=== PATIENT | male | born 1960 | race Caucasian/White ===

== ENCOUNTER 2017-04-28 19:36 | Inpatient (IN) | payer MEDICARE, MEDICAID ==
[~2017-04-28] VITALS: Ht 170.2 cm; Wt 62.6 kg
--- NOTE | ~2017-04-28 | PROC ---
[address] [address] PROCEDURE REPORT Name: DICK HILTON Room: [address] IN M.R.#: [id number] Admission: 04/28/17 Attend Phys: Tyrell Bruce, Discharge: Date of : 64 Report #: [id number] THIS REPORT FOR: //name// For additional GI report details, please see the Provation report in Perceptive 7 content. By: [id number] Records Staff NANCY /ENOC
[~2017-04-28 19:36] MED LIST: ACETAMINOPHEN325 M1 PO; ACETAMINOPHEN650 MG RECTAL; ALDACTONE; ALDACTONE50 MG PO; ALPRAZOLAM 0.0.25 M1; ALPRAZOLAM 0.50.5 MG PO; ALPRAZOLAM PO; ASPIR 8181 MG PO; AURALGAN EAR DR14 ML; BACTRIM DS TAB1 EACH PO; CLEOCIN HCL150 MG; COLACE 100 MG100 MG PO; CRESTOR PO; CRESTOR10 MG PO; DOXYCYCLINE 10100 M1 PO; FENOFIBRATE134 MG PO; FUROSEMIDE 80 M80 M1 PO; FUROSEMIDE PO; GLUCAGEN1 MG IM; HUMALOG PE100 UNIT/M SC; HUMULIN N100 UNIT/1; HUMULIN N100 UNIT/1 SUBQ; HYDROCODON-ACE1 EAC7; HYDROCODON-ACE1 EACH; K-DUR10 ME1 PO; KEFLEX500 MG PO; KLOR-CON 10 ER10 MEQ PO; LASIX 80 MG TAB80 MG PO; LEVEMIR FL100 UNIT/2 SUBQ; LIPITOR10 MG PO; MELATONIN10 M2 PO; MILK OF MA2400 MG/10 PO; Melatonin 5MG CAPSUL PO; NORITATE60 GM; NOVOLOG100 UNIT/1; NOVOLOG100 UNIT/1 SC; NOVOLOG100 UNIT/1 SUBQ; NYAMYC15 GM TOP; POTASSIUM PO; PRINIVIL40 MG PO; SEROQUEL 25 MG25 M1 PO; SPIRONOLACTONE50 MG PO; TRILIPIX135 MG PO; XARELTO15 MG PO; XARELTO20 MG PO; ZOFRAN ODT4 MG DISSOLVE
[2017-04-28 19:51] VITALS: BP 59/34
[2017-04-28 20:37] LABS: ABSOLUTE BASOPHILS 0.2 thou/uL (0.0-0.2); ABSOLUTE LYMPHOCYTES 1.4 thou/uL (0.8-5.3); ABSOLUTE MONOCYTES 0.7 thou/uL (0.0-1.2); BASOPHILS 1.3 %; EOSINOPHILS 0.2 %; HEMATOCRIT 22.4 % (42.0-52.0); HEMOGLOBIN 7.3 gm/dL (14.0-18.0); LYMPHOCYTES 11.4 %; MCH 30.1 pg (26.0-34.0); MCHC 32.6 g/dL (28.0-37.0); MCV 92.2 fL (80.0-100.0); MONOCYTES 5.6 %; MPV 10.5 fl. (7.2-11.1); NUCLEATED RBCS 0 /100WBC; PLATELET COUNT* 255 thou/uL (150-400); POLYS 81.5 %; RBC 2.44 mil/uL (4.50-6.00); RDW-CV 14.9 % (10.5-14.5); WBC 12.3 thou/uL (4.0-11.0)
[2017-04-28 21:06] LABS: TROPONIN-I LEVEL <0.06 ng/mL (<0.06)
[2017-04-28 21:21] LABS: CREATININE 2.3 mg/dL (0.6-1.3)
[2017-04-28 21:24] LABS: ALBUMIN 3.3 g/dL (3.4-5.0); TOTAL BILIRUBIN 0.3 mg/dL (<0.1-1.0); TOTAL PROTEIN 7.3 g/dL (6.4-8.2)
[2017-04-28 21:32] LABS: POTASSIUM 6.2 mmol/L (3.5-5.1)
[2017-04-28 21:47] LABS: CALCIUM 8.8 mg/dL (8.5-10.1); CREATININE 2.3 mg/dL (0.6-1.3)
[2017-04-28 21:49] LABS: POTASSIUM 6.1 mmol/L (3.5-5.1)
[2017-04-28 22:31] LABS: MAGNESIUM 2.1 mg/dL (1.8-2.4); PHOSPHORUS* 5.9 mg/dL (2.5-4.9)
[2017-04-28 22:45] LABS: APTT 37.8 Seconds (25.0-31.3); INR 1.4; PROTIME 13.6 Seconds (9.20-11.50)
[2017-04-29] VITALS (43 sets, daily range): BP systolic 73–138; BP diastolic 41–73
--- NOTE | 2017-04-29 01:35 | NUR ---
ADMITTED TO ICU FOR SEPSIS. NO ONE PRESENT. PATIENT UNABLE TO ANSWER QUESTIONS. UNABLE TO COMPLETE ADMIT COMPLETELY D/T THIS.
[2017-04-29] MEDS ORDERED: PRINIVIL20 MG PO (02:04)
[2017-04-29 03:12] LABS: MCH 30.1 pg (26.0-34.0); MCHC 34.4 g/dL (28.0-37.0); MCV 87.6 fL (80.0-100.0); MPV 10.4 fl. (7.2-11.1); RDW-CV 14.1 % (10.5-14.5); WBC 11.5 thou/uL (4.0-11.0)
[2017-04-29 03:27] LABS: ALBUMIN 2.5 g/dL (3.4-5.0); CALCIUM 7.8 mg/dL (8.5-10.1); CREATININE 1.6 mg/dL (0.6-1.3); MAGNESIUM 1.9 mg/dL (1.8-2.4); POTASSIUM 4.8 mmol/L (3.5-5.1); TOTAL BILIRUBIN 0.3 mg/dL (<0.1-1.0); TOTAL PROTEIN 6.1 g/dL (6.4-8.2)
[2017-04-29 03:56] LABS: HEMATOCRIT 17.5 % (42.0-52.0)
[2017-04-29 04:17] LABS: BE -10.6 mmol/L (-2 to +3); HCO3 15.3 mmol/L (22.0-26.0); PCO2 VENOUS 34.2 mmHg (41.0-51.0); PO2 VENOUS 40.1 mmHg (35.0-45.0)
[2017-04-29 06:04] LABS: BE -11.9 mmol/L (-2 to +3); HCO3 12.8 mmol/L (22.0-26.0); PCO2 25.1 mmHg (35.0-45.0); pH 7.327 (7.340-7.450)
[2017-04-29 06:05] LABS: PO2 156.5 mmHg (75.0-100.0)
--- NOTE | 2017-04-29 06:29 | NUR ---
NOT PROGRESSING TOWARDS GOALS. BP SLIGHTLY IMPROVED ON LEVOPHED. UNABLE TO PLACE NG D/T NASAL OBSTRUCTION. SURGERY RESIDENT TO BE HERE SHORTLY. GI & NEPHROLOGY CONSULTED, AWAITING CALL BACK. BLOOD INFUSING.
[2017-04-29 06:36] LABS: URINE BILIRUBIN NEGATIVE (Negative); URINE BLOOD NEGATIVE (Negative); URINE CLARITY CLEAR; URINE COLOR YELLOW; URINE GLUCOSE-RANDOM NEGATIVE (Negative); URINE KETONES NEGATIVE (Negative); URINE LEUKOCYTES-REFLEX NEGATIVE (Negative); URINE NITRITE-REFLEX NEGATIVE (Negative); URINE PROTEIN NEGATIVE (Negative); URINE UROBILINOGEN 0.2 E.U./dl (0.2-1.0)
--- NOTE | 2017-04-29 06:42 | NUR ---
SPOKE WITH DR. PERRY ABOUT CONSULT. NO ORDERS RECV'D
--- NOTE | 2017-04-29 09:13 | NUR ---
DR BLACKMON AT BEDSIDE, DOES NOT THINK PATIENT NEEDS NG TUBE AT THIS POINT, SOME BOWEL SOUNDS PRESENT, ABDOMEN SOFT AND ROUND. WILL TREAT WITH MOTILITIY AGENTS AND POSSIBLE SCOPE TOMORROW.
[2017-04-29 12:58] LABS: HEMATOCRIT 37.2 % (42.0-52.0); HEMOGLOBIN 12.2 gm/dL (14.0-18.0)
--- NOTE | 2017-04-29 13:54 | EKG ---
[place] [address] ELECTROCARDIOGRAM REPORT Name: DICK HILTON Room: [address] ADM IN .R.#: [id number] Admission: 04/28/17 Attend Phys: Tyrell Bruce, Discharge: Date of : 64 Report #: [id number] THIS REPORT FOR: //name// [facility] ED Test Date: 2017-04-28 Test Time: 20:16:17 Pat Name: DICK HILTON Department: Room: [facility] Gender: M Machine Oiler: JOSE : 1960 Requested By: Jacob Fontana Order Number: [id number] MD: Diony Hahn Measurements Intervals Tarrs Rate: 70 P: -22 DE: 207 QRS: -65 QRSD: 99 T: 120 QT: 375 QTc: 405 Interpretive Statements Sinus rhythm Borderline prolonged DE interval Left anterior fascicular block Cannot rule out Anteroseptal infarct, old Nonspecific T abnormalities, lateral leads Baseline wander in lead(s) V4 Compared to ECG 01/12/2017 11:47:48 Ventricular premature complex(es) now present Left anterior fascicular block now present Low QRS voltage now present T-wave abnormality now present Possible Myocardial infarct finding still present Electronically Signed On 04-29-2017 13:54:15 CLIENT SERVICE SUPERVISOR by Diony Hahn [email or web address] <ELECTRONICALLY SIGNED> By: Diony Hahn MD, FACC 04/29/17 1354 15 15 Diony Hahn MD, [facility] /EPI
--- NOTE | 2017-04-29 18:22 | NUR ---
PATIENT HEMOGLOBIN UP TO 12.2 AFTER 3 UNITS OF BLOOD, ONE COFFEE GROUND EMESIS EPSISODE TODAY, ZOFRAN GIVEN ONCE ALSO. PATIENT HAS RESTRAINTS DUE TO SAFTEY AND TRYING TO PULL OUT CENTRAL LINE. COUPLE EPSISODES OF BLACK STOOL TODAY WELL. UNABLE TO UNDERSTAND MOST THINGS PATIENT SAYS, TRYS TO POINT. MOUTH CARE DONE. NO APPARENT PAIN OR NAUSEA AT THIS TIME. BED IN LOWEST POSITION, CALL LIGHT IN REACH, BED ALARM ON, WILL CONTINUE TO MONITOR.
[2017-04-29 23:08] LABS: GLYCOHEMOGLOBIN (HGB A1C) 5.3 % (4.8-5.6); IgA 417 mg/dL (90-386); IgG 1126 mg/dL (700-1600); IgM 30 mg/dL (20-172)
[2017-04-30] VITALS (15 sets, daily range): BP systolic 75–123; BP diastolic 41–960
[2017-04-30 04:40] LABS: HEMOGLOBIN 10.5 gm/dL (14.0-18.0); MCH 29.4 pg (26.0-34.0); MPV 10.3 fl. (7.2-11.1); RBC 3.56 mil/uL (4.50-6.00); WBC 6.1 thou/uL (4.0-11.0)
[2017-04-30 04:53] LABS: MCV 81.6 fL (80.0-100.0)
[2017-04-30 04:59] LABS: INR 1.4; PROTIME 13.6 Seconds (9.20-11.50)
[2017-04-30 05:02] LABS: ALBUMIN 2.3 g/dL (3.4-5.0); CALCIUM 8.1 mg/dL (8.5-10.1); MAGNESIUM 1.5 mg/dL (1.8-2.4); POTASSIUM 3.5 mmol/L (3.5-5.1); TOTAL BILIRUBIN 1.9 mg/dL (<0.1-1.0); TOTAL PROTEIN 5.6 g/dL (6.4-8.2)
--- NOTE | 2017-04-30 05:24 | NUR ---
PT. PROGRESSING TOWARDS GOALS. BP'S HAVE BEEN SOFT BUT STABLE THIS SHIFT. ATIVAN GIVEN PER PRN ORDER DUE TO RESTLESSNESS/AGITATION. IVF INFUSING, PROTONIX GTT REMAINS INFUSING. PT. TO HAVE EGD DONE TODAY BY DR. PERRY. SHERMAN OBTAINED THIS A.M. MRSA POSITIVE, ISOLATION INITIATED. WILL CONTINUE TO MONITOR.
--- NOTE | 2017-04-30 10:26 | CON ---
[address] [address] CONSULTATION Name: LIDADICK Funmilayo Room: [address] IN M.R.#: [id number] Admission: 04/28/17 Attend Phys: Tyrell Bruce, Discharge: Date of : 64 Report #: [id number] THIS REPORT FOR: //name// CC: Justin Kortney Tyrell Bruce DATE OF SERVICE: 04/29/2017 REASON FOR CONSULTATION: Question sepsis. HISTORY OF PRESENT ILLNESS: A 57-year-old white man with mental retardation, admitted through the Emergency Room with history of nausea, vomiting and diarrhea, found to be vomiting and what appears to be blood. He is significantly anemic. He is hypotensive. He has significant abdominal distention. The patient unable to provide information. All information gathered from review of records. PAST MEDICAL HISTORY: 1. Down syndrome. 2. Diabetes mellitus. 3. Congestive heart failure. 4. Recent DVT. 5. 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 6. Self-induced injury biting. 7. Abdominal wall hernia repair. DRUG ALLERGIES: PHENYLPROPANOLAMINE, CHLORPHENIRAMINE, PENICILLIN, LEVOFLOXACIN, LATEX, TETANUS TOXOID. MEDICATIONS: The patient is currently on treatment with atorvastatin, rivaroxaban, nystatin, topical aspirin, insulin lispro per sliding scale, meropenem 500 mg IV every 8 hours, Levophed drip, dextrose 10 and 15% if needed for hypoglycemia, p.r.n. glucagon, p.r.n. acetaminophen, p.r.n. lorazepam, Rocephin 1 gram IV daily given yesterday, I believe. Intravenous fluids, Levophed drip. FAMILY HISTORY: Unable to obtain. SOCIAL HISTORY: Unable to obtain. REVIEW OF SYSTEMS: Unable to obtain. PHYSICAL EXAMINATION: GENERAL: Chronically ill-appearing man, rather pale, hypothermic with warming blanket. VITAL SIGNS: Temperature 94.3, pulse 96, respirations 16, BP 82/52[place] [address] CONSULTATION Name: DICK HILTON Room: [address] IN [facility]#: [id number] Admission: 04/28/17 Attend Phys: Tyrell Bruce, Discharge: Date of : 64 Report #: [id number] HEENT: Conjunctivae pale. Pupils equal. Mouth: Dry mucous membrane. NECK: Supple. LUNGS: Clear. HEART: S1, S2. No gallop. ABDOMEN: Distended, tympanitic, not obviously tender. PELVIC AND RECTAL: Deferred. EXTREMITIES: No clubbing, cyanosis. NEUROLOGIC: Grossly within normal limits. LABORATORY DATA: Sodium 139, potassium 4.8, CO2 17, BUN 82, creatinine 1.6, glucose 151. Amylase and lipase were normal yesterday. Phosphorus 5.9 mg/dL, albumin 2.5 g/dL. WBC 11,500, hemoglobin 6 g/dL, platelets 169,000. White blood cell count differential yesterday revealed 81% segmented neutrophils. Urinalysis pending. ABGs yesterday, set to be venous sample pH 7.26, pCO2 of 34, pO2 of 40, bicarbonate 15.3. MICROBIOLOGY DATA: Stool sputum and blood cultures are pending. RADIOLOGY EVALUATION: Chest x-ray, no acute process. CT scan of abdomen and pelvis, clear lung patrick, significant gastric dilatation as well as colonic dilatation. There might be pneumatosis of the colon, though this is not on official report. All in all, there appears to be significant distention of the colon. ASSESSMENT: 1. Rule out sepsis. 2. Gastroenteritis versus small-bowel obstruction. 3. Acute kidney injury. 4. Possible gastrointestinal bleed with severe anemia. 5. Down syndrome. SUGGESTIONS: Gurrola culture. Continue meropenem. MRSA screen. Add vancomycin. Surgical consultation. NG tube if not already done. Dr. Bruce, thank you for requesting our suggestions. <ELECTRONICALLY SIGNED> By: Lito Henry MD 04/30/17 1026 0433 [id number] Henry MD /nt
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
--- NOTE | 2017-04-30 14:14 | 2DMMODE ---
[place] [address] 2 D/M-MODE ECHOCARDIOGRAM Name: LIDADICK Funmilayo Room: [address] ADM IN [facility]#: [id number] Admission: 04/28/17 Attend Phys: Tyrell Junior Discharge: Date of : 64 Date of Service: 04/30/17 1414 Report #: [id number] THIS REPORT FOR: //name// APPROVED REPORT Study performed: 04/30/2017 10:55:03 EXAM: Comprehensive 2D, Doppler, and color-flow Echocardiogram Patient Location: In-Patient Room #: 002 Status: routine BSA: 1.89 HR: 96 bpm BP: 97/54 mmHg Rhythm: NSR Other Information Study Quality: Good Indications Sepsis Dyspnea 2D Dimensions IVSd: 11.38 (7-11mm) LVOT Diam: 20.22 (18-24mm) LVDd: 28.88 mm PWd: 8.56 (7-11mm) Ascending Ao: 29.01 (22-36mm) LVDs: 14.99 (25-40mm) Aortic Root: 31.10 mm Aortic Valve AoV Peak Charan.: 1.66 m/s AO Peak Gr.: 10.97 mmHg LVOT Max P.53 mmHg AO Mean Gr.: 6.01 mmHg LVOT Mean P.79 mmHg LVOT Max V: 1.28 m/s AO V2 VTI: 26.29 cm LVOT Mean V: 0.92 m/s SANTANA (VTI): 2.38 cm2 LVOT V1 VTI: 19.46 cm Mitral Valve E/A Ratio: 0.67 MV Decel. Time: 156.58 ms MV E Max Charan.: 1.09 m/s MV PHT: 45.41 ms MVA (PHT): 4.85 [place] [address] 2 D/M-MODE ECHOCARDIOGRAM Name: DICK HILTON Room: [address] IN .R.#: [id number] Admission: 04/28/17 Attend Phys: Tyrell Junior Discharge: Date of : 64 Date of Service: 04/30/17 1414 Report #: [id number] TDI E/Lateral E': 9.91 E/Medial E': 15.57 Medial E' Charan.: 0.07 m/s Lateral E' Charan.: 0.11 m/s Pulmonary Valve PV Peak Charan.: 1.01 m/s PV Peak Gr.: 4.09 mmHg Left Ventricle The left ventricle is normal size. There is normal LV segmental wall motion. There is normal left ventricular wall thickness. Left ventricular systolic function is normal. The left ventricular ejection fraction is within the normal range. LVEF is 65-70%. Grade I - abnormal relaxation pattern. Right Ventricle The right ventricle is normal size. The right ventricular systolic function is normal. Atria The left atrium size is normal. The right atrium size is normal. Aortic Valve Mild aortic valve sclerosis. No aortic regurgitation is present. There is no aortic valvular stenosis. Mitral Valve The mitral valve is normal in structure. There is no mitral valve regurgitation noted. No evidence of mitral valve stenosis. Tricuspid Valve The tricuspid valve is normal in structure. There is no tricuspid valve regurgitation noted. Pulmonic Valve Pulmonic valve is not well visualized. There is no pulmonic valvular regurgitation. Great Vessels The aortic root is normal in size. IVC is normal in size and collapses with >50% inspiration Pericardium There is no peric[place] [address] 2 D/M-MODE ECHOCARDIOGRAM Name: DICK HILTON Room: [address] IN [facility]#: [id number] Admission: 04/28/17 Attend Phys: Tyrell Junior Discharge: Date of : 64 Date of Service: 04/30/17 1414 Report #: [id number] <Conclusion> Left ventricular systolic function is normal. The left ventricular ejection fraction is within the normal range. Mild aortic valve sclerosis. <ELECTRONICALLY SIGNED> By: Oscar Ponce MD, [facility] 04/30/17 1414 1414 1414 Oscar Ponce MD, [facility] /INF
--- NOTE | 2017-04-30 15:39 | NUR ---
ASSUMED CARE OF PATIENT THIS AM RESPONSIVE REMAINS IN RESTRAINTS REACHING FOR LINE. TO OR FOR EGD AT 1635. CONSENTS DONE. SPOKE WITH CASEWORKERS ASKED IF PT MOTHER HAD COME TO SEE PATIENT.
--- NOTE | 2017-04-30 18:32 | NUR ---
PATIENT REFUSED EVENING MEAL TOLERATED EGD WITHOUT DISTRESS.
[2017-05-01] VITALS (12 sets, daily range): BP systolic 90–133; BP diastolic 53–78
[2017-05-01 03:49] LABS: CREATININE 0.8 mg/dL (0.6-1.3); MAGNESIUM 1.8 mg/dL (1.8-2.4); POTASSIUM 3.8 mmol/L (3.5-5.1)
[2017-05-01 03:55] LABS: HEMATOCRIT 28.2 % (42.0-52.0); HEMOGLOBIN 9.4 gm/dL (14.0-18.0); MCH 28.7 pg (26.0-34.0); MCHC 33.3 g/dL (28.0-37.0); MCV 86.2 fL (80.0-100.0); MPV 10.6 fl. (7.2-11.1); RBC 3.27 mil/uL (4.50-6.00); RDW-CV 14.9 % (10.5-14.5); WBC 4.5 thou/uL (4.0-11.0)
--- NOTE | 2017-05-01 05:51 | NUR ---
PROGRESSION TOWARDS GOALS, NO NAUSEA, VOMITING OR DIARRHEA DURING NOC, ATIVAN GIVEN X1 IVP PER ORDER FOR INCREASED RESTLESSNESS WITH YELLING INCOMPREHENSABLE SOUNDS, UNABLE TO REDIRECT AND CALM, EMOTIONAL SUPPORT PROVIDED, ATTEMPTED ORIENT TO PLACE, TIME, AND SITUATION NOT HELPFUL AT THAT TIME, ATIVAN HELPFUL FOR RELAXATION AND NO FURTHER YELLING OUT DURING NOC, REMAINS ON ROOMAIR, SLEEP APNEA NOTED AT REST, SAO2 DECREASED MID 80'S WITH GOOD PLETH THAT INCREASED WITHOUT INTERVENTION TO HIGH 90'S SATURATION. REMAINS NSR TRACING CONVENTIONS ASSISTANT, ENCOURAGED PO INTAKE, HOURLY AND PRN ROUNDING PROVIDED PER POLICY, RESTING QUIELTY WITH EYES CLOSED MOST OF NOC, EASILY AROUSABLE TO VERBAL STIMULI. BED REMAINS IN LOW AND LOCKED POSITON FOR SAFETY.
--- NOTE | 2017-05-01 06:29 | NUR ---
INCONTINENT OF LARGE AMOUNT URINE, PROVIDED TOTAL LINEN CHANGE, GIULIANO CARE, BARRIER CREAM APPLIED, CLEAR YELLOW URINE NOTED TO BE DRAINING IN BHATIA TUBING FREE OF SEDIMENT OR MOCOUS, DEFLATED BHATIA CATHETER BULB, 8CC SALINE NOTED, REINFLATED BHATIA CATHETER BALOON WITH 10CC NORMAL SALINE, FLUSHED CATHETER WITH 60CC STERILE SALINE, WITH GOOD FREE FLOWING DD URINE RETURN NOTED IN BHATIA TUBING, REPLACED STAT PROBE, TUBING APPEARS WITHOUT ANY TYPE OF TORSION OR OCCLUSION.
[2017-05-01 06:46] LABS: DIRECT BILIRUBIN 0.3 mg/dL (<0.1-0.3); TOTAL BILIRUBIN 1.2 mg/dL (<0.1-1.0); TOTAL PROTEIN 4.8 g/dL (6.4-8.2)
--- NOTE | 2017-05-01 12:39 | S ---
[place] [address] SURGICAL PATH RPT PROCEDURE Name: DAVID HILTON Room: [address] IN M.R.#: [id number] Admission: 04/28/17 Date of : 64 Discharge: Report #: [id number] Path Case #: [id number] PATHOLOGY REPORT COLLECTION DATE: 04/30/2017 RECEIVED DATE: 04/30/2017 SUBMITTING PHYS: Dr. Felicia Madsen OTHER PHYS: Dr. Tyrell Sheets SPECIMEN(S) RECEIVED: A.Duodenal bx for gastritis B.Gastric ulcer * * * * * * * * * * * * FINAL DIAGNOSIS: A. Duodenal biopsy for gastritis: - Minimal nonspecific active duodenitis without significant villous atrophy or intraepithelial lymphocytosis, negative for granulomas and dysplasia. B. Gastric ulcer biopsy: - Mild chronic and moderate active gastritis, typical of reactive gastropathy (chemical gastritis), with prominent erosion, negative for granulomas, Helicobacter pylori organisms and dysplasia. (KEITH:mml; 05/01/2017) PATHOLOGIST: Rafael Caballero M.D. REPORT ELECTRONICALLY SIGNED BY: Rafael Caballero M.D. DATE/TIME: 05/01/2017 12:38 * * * * * * * * * * * * GROSS PATHOLOGY: A. The specimen is received in formalin, labeled "David Hilton and duodenal biopsy for gastritis", are two conley soft tissues 0.4 cm and a 0.5 cm in greatest dimension entirely submitted in A1. B. The specimen is received in formalin, labeled "David Hilton and gastric ulcer biopsy", are several conley soft tissue the aggregate measuring 0.5 x 0.4 x 0.1 cm, entirely submitted in B1. (SWS; 04/30/2017) CLINICAL HISTORY: None provided INITIAL CPT CODE(S): A; 45001 B; 86040, [address] [place] [address] SURGICAL PATH RPT PROCEDURE Name: DAVID HILTON Room: [address] IN [facility].#: [id number] Admission: 04/28/17 Date of : 64 Discharge: Report #: [id number] Path Case #: [id number] Professional services performed by [facility] at [facility], [address] [place], [place] [address], [place] [address]. Technical services performed by [facility] at [address] [place] [address], [address] [address]. [facility] [place] [address] PHONE: [phone] DIRECTOR: Robin Mendez M.D. * * * END OF REPORT * * *
--- NOTE | 2017-05-01 14:09 | NUR ---
SOFI MCGEE AND DIXIE HILTON FROM [facility] WERE HERE YESTERDAY TO SEE PT. CALLED [facility] ([phone]) AND LEFT VM FOR DIXIE TO CALL ME REGARDING HOW PT HAS BEEN DOING AT THE [facility].
--- NOTE | 2017-05-01 19:15 | NUR ---
PATIENT TOLERATING PO WANTS TO GO HOME. DCD CVP AND TPN REMAINS IN RESTRAINTS. PROGRESSING TOWARD GOALS.
[2017-05-02] VITALS (7 sets, daily range): BP systolic 89–112; BP diastolic 47–64
--- NOTE | 2017-05-02 02:13 | NUR ---
RECEIVED REPORT FROM HANNAH MEDICAL SERVICE TECHNICIAN. PATIENT TRANSFERRED WITH BELONGINGS TO ROOM 206. NET FISHER IN PLACE TRACING SR. VSS. PATIENT RESTING COMFORTABLY WITH NO C/O PAIN OR DISCOMFORT. PATIENT REMAINS IN SOFT WRIST RESTRAINTS, HOWEVER, STILL ATTEMPTING TO ITCH AND PULL AT CENTRAL LINE. BHATIA IN PLACE TO DD. PATIENT TO BE REPOSITIONED Q2H FOR INTEGRITY. GOAL FOR THIS SHIFT IS TO REST COMFORTABLY AND HAVE NO SIGNS OF BLEEDING. CALL LIGHT WITHIN REACH
--- NOTE | 2017-05-02 02:24 | NUR ---
REVIEWED AND AGREE WITH FREEZER WORKER'S ASSESSMENT. PATIENT IS WEARING SCDS ON UNIT.
--- NOTE | 2017-05-02 02:37 | NUR ---
REVIEWED AND AGREE WITH ROAD OILER'S ASSESSMENT
[2017-05-02 05:14] LABS: HEMATOCRIT 26.9 % (42.0-52.0); MCH 29.6 pg (26.0-34.0); MCV 84.6 fL (80.0-100.0); MPV 10.2 fl. (7.2-11.1); RBC 3.18 mil/uL (4.50-6.00); RDW-CV 14.4 % (10.5-14.5); WBC 5.6 thou/uL (4.0-11.0)
[2017-05-02 05:22] LABS: HEMOGLOBIN 9.4 gm/dL (14.0-18.0)
[2017-05-02 05:29] LABS: ALBUMIN 2.1 g/dL (3.4-5.0); CREATININE 0.7 mg/dL (0.6-1.3); MAGNESIUM 1.5 mg/dL (1.8-2.4); POTASSIUM 3.7 mmol/L (3.5-5.1); TOTAL BILIRUBIN 0.8 mg/dL (<0.1-1.0); TOTAL PROTEIN 5.4 g/dL (6.4-8.2)
--- NOTE | 2017-05-02 05:41 | NUR ---
PATIENT'S SLEEP INTERRUPTED TO TAKE CARAFATE. PATIENT COMBATIVE AND IMPULSIVE, ATTEMPTED TO PULL AT CENTRAL LINE AND HITTING THIS RN'S HAND AWAY. PATIENT DISTRACTED WITH HIS TERESA BEAR AND ENCOURAGED TO GIVE HIS BEAR LOVES. ATIVAN ADMINISTERED PER EMAR. PATIENT CALM AND COMPLIANT AT THIS TIME. HOURLY ROUNDING OBSERVED. CALL LIGHT WITHIN REACH. PATIENT PROGRESSING TOWARDS GOALS: NO SIGNS OF BLEEDING. NO NAUSEA/VOMITING/DIARRHEA. HGB REMAINS STABLE AT 9.4 THIS AM.
--- NOTE | 2017-05-02 12:48 | NUR ---
Spoke with Dr Henriquez, anticipate that Pt should be ready to dc back to his care home tomorrow. PT/OT oscar ordered. Following.
--- NOTE | 2017-05-02 18:21 | NUR ---
ASSUMED PT CARE AT 0700 PT IS ALERT TO SELF PT SHOWS NO SIGNS OF PAIN OR SOA PT HAS DOWN SYNDROME IS FROM LONG TERMELEMENTARY ASSISTANT TEACHER VISITED PT, PT IS ANXIOUS AND COMBATIVE TRYING TO PULL OUT INTERAL JUGULAR CENTRAL LINE THIS NURSE GAVE ATIVAN WHICH HELPED PT, DR ANAYA SAW PT SWITCHED IV ATIVAN TO PO ATIVAN ORDERED PT TO WORK WITH PHYSICAL THERAPY AND OT WHICH PT DID GOT PT UP TO CHAIR, PT BECAME AGITATED AND COMABTIVE GAVE PT PO ATIVAN PT WAS SCREAMING NOTIFIED PHYSICIAN OBTAINED ORDER FOR NON VIOLENT RESTRAINTS MITTENS CALLED [facility] FOR MITTENS PT CALMED DOWN IS ASLEEP HAVE NOT PUT MITTENS ON, PT FOLLOWS COMMANDS ABLE TO SWALLOW PILLS WHOLE PT IS SR ON MONITOR PT UP WITH ASSIST X 2 TO CHAIR, WILL CONTINUE TO MONITOR
[2017-05-03 04:15] VITALS: BP 101/55
--- NOTE | 2017-05-03 07:00 | NUR ---
PATIENT PROGRESSING TOWARDS GOALS: NO NAUSEA/VOMITING/DIARRHEA THIS SHIFT. PATIENT HAS RESTED COMFORTABLY THIS SHIFT, HOWEVER, DID HAVE TWO SHORT MOMENTS OF IMPULSIVENESS, ATTEMPTING TO PULL AT CENTRAL LINE. LORAZEPAM ADMINISTERED PER MAR AND SITTER ABLE TO DISTRACT HIM. IV MAGNESIUM REPLACED, BLOOD DRAWS PENDING. HOURLY ROUNDING OBSERVED. CALL LIGHT WITHIN REACH
[2017-05-03 08:00] VITALS: BP 103/61
--- NOTE | 2017-05-03 08:00 | NUR ---
ASSUMED CARE OF PT THIS AM ASSESSED AND DOCUMENTED. PT IS ON CARDIAC MONITER TRACING SR 1ST DEGREE HR 76. PT IS ON ISOLATION FOR MRSA. SITTER IS PRESENT PT CONT TO ABDIRIZAK AND REMOVE HIS IJ TRIPLE LUMEN. VSS WNL. PT IS AFEBRILE. WM.
[2017-05-03 08:44] LABS: HEMATOCRIT 25.7 % (42.0-52.0); HEMOGLOBIN 8.4 gm/dL (14.0-18.0); MCH 28.7 pg (26.0-34.0); MCHC 32.6 g/dL (28.0-37.0); MCV 88.3 fL (80.0-100.0); MPV 10.3 fl. (7.2-11.1); RBC 2.91 mil/uL (4.50-6.00); RDW-CV 14.9 % (10.5-14.5); WBC 4.9 thou/uL (4.0-11.0)
[2017-05-03 08:50] LABS: CALCIUM 7.4 mg/dL (8.5-10.1); CREATININE 0.6 mg/dL (0.6-1.3); POTASSIUM 3.4 mmol/L (3.5-5.1)
--- NOTE | 2017-05-03 09:00 | NUR ---
Spoke with staff at Pt's [facility], Pt normally does pretty well at home. Pt has 24 hour staff available to him. Discussed possible need for skilled, staff believe that Pt would do much better at home, rather than a skilled facility. Pt could have HH at home, to continue to assist with building strength. nursing home can provide dc transportation.
[2017-05-03] MEDS ORDERED: CARAFATE 1 GM TA1 G1 PO (11:58)
[2017-05-03] MEDS ORDERED: PANTOPRAZOLE SO40 M1 PO (11:58)
[2017-05-03 12:00] VITALS: BP 129/58
--- NOTE | 2017-05-03 14:36 | NUR ---
IV Central line discontinued. Patient was cooperative. Transparent dressing applied with gauze. Site showed no swelling or drainage/discharge. Skin at site was pink.
[2017-05-03 16:00] VITALS: BP 120/37
[2017-05-03 17:43] VITALS: BP 120/37
--- NOTE | 2017-05-03 18:22 | NUR ---
PT HAS BEEN DISCHARGED. ALL CONSULTS OK WITH D/C. TRIPLE LUMEN D/C'D ALONG WITH CARDIAC MONITER. [facility] IS TO PICK PT UP AT 10.30PM. PT HAS CONT ON ISOLATION FOR MRSA PER PROTOCOL. SITTER NO LONGER AT BEDSIDE. SRIRAM WAS D/C'D. REPORT CALLED IN.
--- NOTE | 2017-05-03 23:41 | NUR ---
CAREGIVER FROM [facility] HERE AROUND 2244. REVEIEWED ISAAC PAPERWORK WITH HER. DC PACKET GIVEN TO HER. PT ESCORTED VIA W/C WITH BELONGINGS DOWN THROUGH ER WITH STAFF.
--- NOTE | 2017-05-04 00:19 | NUR ---
LATE ENTRY NOTE FOR 1999, AND 2229, (DISCHARGE) PATIENT ALERT AND ORIENTED TO SELF, PATIENT WAS CALM, AND COOPERATIVE. LUNGS, CTA, ABD SOFT, SKIN W/D AND INTACT. SITTER AT BEDSIDE. PATIENT TAKING PO MEDS WITHOUT DIFFICULTIES. AT 2229 TRANSPORTATION ARRIVED AND PATIENT WAS TRANSFERRED TO WHEELCHAIR AND TRANSPORTED OFF THE UNIT IN STABLE CONDITION. REPORT WAS GIVEN TO RECEIVING FACILITY BY DAY SHIFT NURSE.
--- NOTE | 2017-05-07 09:12 | CON ---
[address] [address] CONSULTATION Name: LIDADICK Funmilayo Room: [address] IN M.R.#: [id number] Admission: 04/28/17 Attend Phys: Tyrell Bruce, Discharge: 05/03/17 Date of : 64 Report #: [id number] THIS REPORT FOR: //name// CC: Justin Sheets Tyrell Bruce DATE OF SERVICE: 04/29/2017 REQUESTING PHYSICIAN: Tyrell Bruce MD REASON FOR CONSULTATION: Acute kidney injury. HISTORY OF PRESENT ILLNESS: The patient is a 57-year-old gentleman with medical history significant for mental retardation, admitted to the hospital because he developed diarrhea, which was bloody and some vomiting in his nursing facility. Symptoms started a couple of days prior to admission. When he was brought to the Emergency Room, he was found to be in acute kidney injury with creatinine of 2.3. He was having GI bleed, hemoglobin 6.0. His potassium was 6.2 initially, it is down to 4.8. PAST MEDICAL HISTORY: 1. Down syndrome. 2. History of amputation of middle finger on the right hand. 3. History of diabetes mellitus type 2. 4. History of deconditioning. MEDICATIONS: Prior to admission included Xarelto, Lipitor, Prinivil, aspirin, and furosemide, magnesium, glucagon, insulin, melatonin. Here in the hospital, he was started on meropenem, Lipitor, vancomycin, Xarelto, other of his medications were stopped, he is requiring some low dose Levophed. REVIEW OF SYSTEMS: Not reliable due to his mental retardation. FAMILY HISTORY: Noncontributory. SOCIAL HISTORY: Resides in an especial facility. PHYSICAL EXAMINATION: GENERAL: He is awake and alert. VITAL SIGNS: Blood pressure 105/54, blood pressure as low as 77/52, actually he was even as low as 59/34 on admission, heart rate 99, temperature 35.9. HEENT: Pupils are round. NECK: Supple. LUNGS: Few coarse breath sounds. CARDIOVASCULAR: Distant heart tones, [place] [address] CONSULTATION Name: DICK HILTON Room: [address] IN [facility]#: [id number] Admission: 04/28/17 Attend Phys: Tyrell Bruce, Discharge: 05/03/17 Date of : 64 Report #: [id number] ABDOMEN: Soft. LOWER EXTREMITIES: Trace edema. LABORATORY DATA: Hemoglobin 6.0, serum sodium 139, potassium 4.8, BUN 82, creatinine 1.6, this is better compared to 99 and 2.3 even his BUN and creatinine level during admission. ASSESSMENT: 1. Acute kidney injury due to hypotension, volume depletion, gastrointestinal bleed. 2. Gastrointestinal bleed. 3. Down syndrome. His renal functions are improving. His creatinine laid down from 2.3 to 1.6, his potassium is also better down from 6.22 to 4.8. The patient is not nonoliguric. We need to carefully monitor his potassium because he is receiving blood for his GI bleed. Candy Decorator and Infectious Disease are on the case. So at this point, continue fluids, continue to monitor renal function. I think the patient is scheduled to have an EGD done tomorrow. Thank you very much for asking my opinion on acute kidney injury on the patient. <ELECTRONICALLY SIGNED> By: Jerry Painting MD 05/07/17 0912 0943 [id number] Painting MD /[facility]
--- NOTE | 2017-05-09 16:13 | CON ---
[address] [address] CONSULTATION Name: LIDADICK Funmilayo Room: [address] IN M.R.#: [id number] Admission: 04/28/17 Attend Phys: Tyrell Bruce, Discharge: 05/03/17 Date of : 64 Report #: [id number] THIS REPORT FOR: //name// CC: Justincassandra Sheets Tyrell Bruce DATE OF SERVICE: 04/29/2017 REASON FOR CONSULT: Anemia, nausea, vomiting and diarrhea and abdominal distention. HISTORY OF PRESENT ILLNESS: This is a 57-year-old MR patient who lives in a nursing facility. The patient apparently started having diarrhea with melena and hematochezia back on Sunday. He also has had some episodes of nausea and vomiting. He was brought to [facility] and CT of abdomen and pelvis revealed gastric and small bowel distention. He also was noted to be anemic with hemoglobin of 7.5, which later dropped to 6.0. He has not had any emesis, hematochezia or melena during his hospitalization so far. NG tube was initially attempted to be placed, but was unsuccessful. The patient's abdomen currently is mildly distended, but soft. He has hypoactive bowel sounds. I cannot communicate with the patient as he has MR, but does not seem to be in any distress from abdominal pain. PAST MEDICAL HISTORY: Significant for history of Down syndrome, diabetes mellitus, CHF, history of DVT, the patient is on Xarelto, osteomyelitis, middle finger amputation of right hand, hernia rupture and repair of the abdomen, dyslipidemia and hypertension. ALLERGIES: Significant to LEVOFLOXACIN, PENICILLIN, LATEX, PHENYLPROPANOLAMINE and CHLORPHENIRAMINE. MEDICATIONS: Please refer to hospital [facility]. SOCIAL HISTORY: The patient has Down syndrome, MR and lives in a nursing facility. There is no history of tobacco or alcohol use. FAMILY HISTORY: Noncontributory. PHYSICAL EXAMINATION: VITAL SIGNS: Reveals blood pressure of 102/54, respirations 11, pulse 99, temperature 96.6. LUNGS: Decreased breath sounds at the bases. CARDIOVASCULAR: Regular rate. ABDOMEN: Mildly distended, but soft. Bowel sounds [place] [address] CONSULTATION Name: DICK HILTON Room: [address] IN [facility]#: [id number] Admission: 04/28/17 Attend Phys: Tyrell Bruce, Discharge: 05/03/17 Date of : 64 Report #: [id number] LABORATORY DATA: Reveal sodium of 139, potassium 4.8, BUN is 82, creatinine 1.6, glucose is 151. Lipase is 157, total bilirubin is 0.3. Phosphorus is 5.9, calcium 7.8, ALT is 52, alkaline phosphatase is 84. Albumin is 2.5. INR 1.4. WBC is 11.5 with hemoglobin of 6.0, and platelet is 169. IMAGING: CT of abdomen and pelvis was obtained on admission. The findings are suggestive of nonspecific enterocolitis. There is also marked gastric distention and fluid and gas with mild mural thickening of the distal stomach. There is evidence of cholelithiasis without any cholecystitis. ASSESSMENT AND PLAN: 1. The patient with acute anemia who is on Xarelto and has been having melanotic stool since Sunday. We will consider upper endoscopy, most probably tomorrow. Meanwhile, we will place the patient on Protonix drip and transfused to hemoglobin above 8. Note that the patient's hemoglobin back in January of 2017 was close to 13. 2. The patient has abdominal distention, most probably ileus. I will put him on a motility agent, Reglan 10 mg IV q.6 hours. We will repeat KUB tomorrow. 3. Acute renal failure. The patient's creatinine has been improving since admission. Continue IV hydration. <ELECTRONICALLY SIGNED> By: Felicia Madsen MD 05/09/17 1613 0905 08Felicia Madsen MD /nt
== END 2017-05-03 23:15 | disposition home or self-care (01) | DRG 871 ==
LOC: M.ERS 19:36 → M.TBA-ER 21:40 → M.ICU 21:40 → M.2W 05-02 01:00
PROVIDERS: Family Medicine; Internal Medicine; Physician Assistant; Surgery; ADMIT Family Medicine
PROC: 02H633Z Insertion of Infusion Device into Right Atrium, Percutaneous Approach (ICD-10-PCS; principal; 2017-04-28)
PROC: 30233N1 Transfusion of Nonautologous Red Blood Cells into Peripheral Vein, Percutaneous Approach (ICD-10-PCS; 2017-04-29)
PROC: 0DB98ZX Excision of Duodenum, Via Natural or Artificial Opening Endoscopic, Diagnostic (ICD-10-PCS; 2017-04-30)
PROC: 0DB68ZX Excision of Stomach, Via Natural or Artificial Opening Endoscopic, Diagnostic (ICD-10-PCS; 2017-04-30)
DX: A41.9 Sepsis, unspecified organism (principal); R65.21 Severe sepsis with septic shock; E43 Unspecified severe protein-calorie malnutrition; J96.91 Respiratory failure, unspecified with hypoxia; K25.4 Chronic or unspecified gastric ulcer with hemorrhage; K29.71 Gastritis, unspecified, with bleeding; N17.9 Acute kidney failure, unspecified; K56.609 Unspecified intestinal obstruction, unspecified as to partial versus complete obstruction; D62 Acute posthemorrhagic anemia; K92.0 Hematemesis; Q90.9 Down syndrome, unspecified; I95.9 Hypotension, unspecified; E86.9 Volume depletion, unspecified; I50.9 Heart failure, unspecified; E78.5 Hyperlipidemia, unspecified; E87.5 Hyperkalemia; K80.20 Calculus of gallbladder without cholecystitis without obstruction; E11.9 Type 2 diabetes mellitus without complications; Z79.4 Long term (current) use of insulin; E83.42 Hypomagnesemia; I11.0 Hypertensive heart disease with heart failure; K44.9 Diaphragmatic hernia without obstruction or gangrene; T68.XXXA Hypothermia, initial encounter; K52.9 Noninfective gastroenteritis and colitis, unspecified; Z89.021 Acquired absence of right finger(s); Z88.0 Allergy status to penicillin; Z88.7 Allergy status to serum and vaccine; Z88.8 Allergy status to other drugs, medicaments and biological substances; Z88.1 Allergy status to other antibiotic agents; Z91.040 Latex allergy status; Z86.718 Personal history of other venous thrombosis and embolism; Z79.82 Long term (current) use of aspirin; Z79.899 Other long term (current) drug therapy; Z68.21 Body mass index [BMI] 21.0-21.9, adult; Z79.01 Long term (current) use of anticoagulants; Z28.21 Immunization not carried out because of patient refusal

== ENCOUNTER 2017-05-13 17:07 | Emergency (ER) | payer MEDICARE, MEDICAID ==
[~2017-05-13] VITALS: Ht 152.4 cm; Wt 63.5 kg
[~2017-05-13 17:07] MED LIST changes: +CARAFATE 1 GM TA1 G1 PO; +PANTOPRAZOLE SO40 M1 PO; +PRINIVIL20 MG PO
[2017-05-13] MEDS ORDERED: FUROSEMIDE 80 M80 M1 PO (17:30)
[2017-05-13] MEDS ORDERED: TRAZODONE HCL50 MG PO (17:30)
[2017-05-13] MEDS ORDERED: POTASSIUM20 PO (17:31)
[2017-05-13] MEDS ORDERED: PRINIVIL20 MG PO (17:32)
[2017-05-13 17:55] LABS: ABSOLUTE BASOPHILS 0.1 thou/uL (0.0-0.2); ABSOLUTE EOSINOPHILS 0.1 thou/uL (0.0-0.7); ABSOLUTE LYMPHOCYTES 1.3 thou/uL (0.8-5.3); ABSOLUTE MONOCYTES 0.7 thou/uL (0.0-1.2); ABSOLUTE NEUTROPHILS 6.3 thou/uL (1.6-8.1); BASOPHILS 0.8 %; EOSINOPHILS 1.3 %; HEMATOCRIT 29.8 % (42.0-52.0); HEMOGLOBIN 10.1 gm/dL (14.0-18.0); LYMPHOCYTES 15.4 %; MCH 28.7 pg (26.0-34.0); MCHC 33.8 g/dL (28.0-37.0); MCV 84.9 fL (80.0-100.0); MONOCYTES 8.7 %; NUCLEATED RBCS 0 /100WBC; PLATELET COUNT* 243 thou/uL (150-400); POLYS 73.8 %; RBC 3.51 mil/uL (4.50-6.00); RDW-CV 15.1 % (10.5-14.5); WBC 8.5 thou/uL (4.0-11.0)
[2017-05-13 18:17] LABS: POTASSIUM 3.2 mmol/L (3.5-5.1)
[2017-05-13 18:18] LABS: CALCIUM 8.3 mg/dL (8.5-10.1); CREATININE 0.9 mg/dL (0.6-1.3); TOTAL BILIRUBIN 0.7 mg/dL (<0.1-1.0); TOTAL PROTEIN 7.6 g/dL (6.4-8.2)
[2017-05-13] MEDS ORDERED: KEFLEX500 M1 PO (19:44)
[2017-05-13 20:01] VITALS: BP 90/65
== END 2017-05-13 20:04 | disposition home or self-care (01) ==
LOC: M.ERS 17:07
PROVIDERS: Nurse Practitioner Family
DX: E11.649 Type 2 diabetes mellitus with hypoglycemia without coma (principal); L03.116 Cellulitis of left lower limb; L03.115 Cellulitis of right lower limb; R60.9 Edema, unspecified; E87.6 Hypokalemia; E11.69 Type 2 diabetes mellitus with other specified complication; M86.9 Osteomyelitis, unspecified; I50.9 Heart failure, unspecified; Z91.040 Latex allergy status; Z88.1 Allergy status to other antibiotic agents; Z88.0 Allergy status to penicillin; Z88.7 Allergy status to serum and vaccine; Z88.8 Allergy status to other drugs, medicaments and biological substances; Z79.4 Long term (current) use of insulin

== ENCOUNTER 2017-05-17 14:48 | Inpatient (IN) | payer MEDICARE, MEDICAID ==
[~2017-05-17] VITALS: Ht 170.2 cm; Wt 61.2 kg
[~2017-05-17 14:48] MED LIST changes: +KEFLEX500 M1 PO; +POTASSIUM20 PO; +TRAZODONE HCL50 MG PO
[2017-05-17 14:59] VITALS: BP 116/55
[2017-05-17 15:35] LABS: ABSOLUTE LYMPHOCYTES 0.6 thou/uL (0.8-5.3); ABSOLUTE MONOCYTES 0.2 thou/uL (0.0-1.2); ABSOLUTE NEUTROPHILS 1.3 thou/uL (1.6-8.1); BASOPHILS 0.7 %; LYMPHOCYTES 27.1 %; MCH 28.2 pg (26.0-34.0); MCHC 33.4 g/dL (28.0-37.0); MCV 84.6 fL (80.0-100.0); MPV 9.4 fl. (7.2-11.1); NUCLEATED RBCS 0 /100WBC; PLATELET COUNT* 139 thou/uL (150-400); POLYS 59.2 %; RDW-CV 15.1 % (10.5-14.5); WBC 2.2 thou/uL (4.0-11.0)
[2017-05-17 15:43] LABS: CALCIUM 8.4 mg/dL (8.5-10.1); POTASSIUM 3.7 mmol/L (3.5-5.1)
[2017-05-17 15:48] LABS: TOTAL BILIRUBIN 0.4 mg/dL (<0.1-1.0); TOTAL PROTEIN 7.7 g/dL (6.4-8.2)
--- NOTE | 2017-05-17 17:59 | NUR ---
JOHAN SHELTON [phone] PHOTOGRAPHIC PLATE MAKER
[2017-05-17 18:01] VITALS: BP 108/62
--- NOTE | 2017-05-17 19:32 | NUR ---
PT TO ROOM 310 LATE THIS EVENING. VSS, PATIENT DROWSY, ATIVAN GIVEN IN ER. LUNGS CLEAR, BILAT LOWER LEGS RED/WARM. 20G TO RFA PATENT TO NS @ TKO. PLACED UNDER CONSTANT OBS DUE TO BEHAVIOR HISTORY AND LINE PROTECTION.
[2017-05-17 20:00] VITALS: BP 115/55
[2017-05-18 04:28] LABS: HEMATOCRIT 26.8 % (42.0-52.0); MCH 28.2 pg (26.0-34.0); MCHC 33.5 g/dL (28.0-37.0); MCV 84.2 fL (80.0-100.0); MPV 9.5 fl. (7.2-11.1); NUCLEATED RBCS 0 /100WBC; PLATELET COUNT* 131 thou/uL (150-400); RBC 3.18 mil/uL (4.50-6.00); RDW-CV 14.9 % (10.5-14.5)
[2017-05-18 04:54] LABS: CALCIUM 8.3 mg/dL (8.5-10.1); CREATININE 0.9 mg/dL (0.6-1.3); POTASSIUM 3.6 mmol/L (3.5-5.1)
[2017-05-18 05:00] LABS: WBC 1.9 thou/uL (4.0-11.0)
--- NOTE | 2017-05-18 05:06 | NUR ---
PT SLEPT AT INTERVALS DURING THE NIGHT, PT IMPULSIVE, GRABS IV, SITTER AT BEDSIDE, IV FLUIDS AND ANTIBIOTICS GIVEN, URINARY ICONTINENCE, CALL LIGHT IN REACH, BED ALARM ON FOR SAFETY, CALL LIGHT IN REACH, WILL CONTINUE TO MONITOR
[2017-05-18 05:43] LABS: ABSOLUTE EOSINOPHILS 0.1 thou/uL (0.0-0.7); ABSOLUTE LYMPHOCYTES 0.5 thou/uL (0.8-5.3); ABSOLUTE MONOCYTES 0.2 thou/uL (0.0-1.2); ABSOLUTE NEUTROPHILS 1.2 thou/uL (1.6-8.1); ANISOCYTOSIS 1+; PLATELET ESTIMATE DECREASED; POIKILOCYTOSIS 1+
[2017-05-18 07:30] VITALS: BP 137/59
[2017-05-18 08:00] VITALS: BP 137/59
--- NOTE | 2017-05-18 12:52 | NUR ---
Nutrition: Pt assessed for low BMI 18.5. RD questioning accuracy of weights today. Today's wt is 118#, whereas all other wts since Jan 2017 have been around 140#. PLEASE REWEIGH FOR ACCURACY. Per [employer], pt's usual wt before that was 160#. So, there has been some trend of wt loss. RD will f/u on reweigh next week. Diet: CHO controlled. Alb 3, prealb 13.9. Pt has cellulitis, developmental delay, chronic edema, recent GI bleed. Now with cellulitis. On vancomycin. Mild nutrition risk. RECOMMEND MVI FOR ADDED NUTRITION. ENCOURAGE GOOD HYDRATION AND PO INTAKE.
--- NOTE | 2017-05-18 15:55 | NUR ---
JOHANNY called Guardizuhair Young at [phone] and informed of pt admission to hospital. When pt dcs, guardian to be called to inform of discharge home (if after hours call [phone]). JOHANNY called pt Longterm at [phone] and spoke with Marium who discussed pt doing well at home and that they continue to have 24/ care and assistance available for pt. Ngozi visited pt today and plans to visit pt Sunday as well and if pt ready to dc Sunday, Ngozi could provide pt ride home. Marium explained that the fdc is unable to accept pt back home over the weekend. Pt history with Gumaro SON. JOHANNY to continue to follow to assist with safe dc plan.
[2017-05-18 16:03] VITALS: BP 99/55
--- NOTE | 2017-05-18 18:51 | NUR ---
RESUMED CARE THIS AM. CONT WITH CONSTANT OBS FOR LINE MANAGEMENT AND SAFETY. NEW 20G TO LEFT FA X 1 ATTEMPT, KERMIT IV ABT WITHOUT ADR. CONTINENT OF BOWEL, 3 BM THIS SHIFT. INCONT OF URINE. 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 REDNESS AND SWELLING GREATLY REDUCED SINCE YESTERDAY. CALL LIGHT IN REACH, CONT POC.
[2017-05-18 20:05] VITALS: BP 132/57
[2017-05-19] VITALS: BP 124/62
--- NOTE | 2017-05-19 05:15 | NUR ---
PT SLEPT AT INTERVALS DURING THE NIGHT, IV ANTIOBIOTIC GIVEN, SITTER WITH PATIENT, PT FREQUENTLY PICKS AT IV AND ATTEMPTS TO PULL OUT, PT REDIRECTABLE MOST OF THE NIGHT, DRAWING ON PAPER AND SNACKS FOR DIVERSIONAL ACTIVITIES, PT INCONTINENT BUT ALSO USED COMMODE, ATTEMPTS TO GET OUT OF BED BY SELF, BED ALARM ON FOR SAFETY, CALL LIGHT IN REACH, WILL CONTINUE TO MONITOR
[2017-05-19 05:28] LABS: ABSOLUTE LYMPHOCYTES 0.7 thou/uL (0.8-5.3); ABSOLUTE MONOCYTES 0.4 thou/uL (0.0-1.2); BASOPHILS 0.6 %; EOSINOPHILS 2.1 %; HEMATOCRIT 25.9 % (42.0-52.0); HEMOGLOBIN 8.7 gm/dL (14.0-18.0); LYMPHOCYTES 32.7 %; MCH 28.1 pg (26.0-34.0); MCHC 33.6 g/dL (28.0-37.0); MCV 83.7 fL (80.0-100.0); MONOCYTES 18.6 %; MPV 9.5 fl. (7.2-11.1); NUCLEATED RBCS 0 /100WBC; PLATELET COUNT* 114 thou/uL (150-400); RDW-CV 14.7 % (10.5-14.5); WBC 2.2 thou/uL (4.0-11.0)
[2017-05-19 08:00] VITALS: BP 112/44
[2017-05-19 16:12] VITALS: BP 111/69
[2017-05-19 21:00] VITALS: BP 125/51
[2017-05-20 00:32] LABS: % SATURATION 13 % (20-39); IRON 25 ug/dL (50-175)
--- NOTE | 2017-05-20 05:28 | NUR ---
ASSUMED PATIENT CARE AT 1900. PATIENT HAS COGNITIVE DISAVILITIES WHICH EFFECT SPPECH. DID NOT APPEAR TO BE IN ANY PAIN AND DENIED PAIN WHEN ASKED. NO EDEMA NOTED TO BILATERAL LEGS AT THIS TIME. IV PATENT TO FLUSHES AND COVERED WITH COBAN TO PREVENT PATIENT FROM PULLING IV OUT. THIS BEHAVIOR WAS NOT EXHIBITED AT ANY TIME THAT RN WAS IN THE ROOM. SITTER REMAINS AT BEDSIDE. NO BEHAVIORS NOTED. PATIENT SLEPT THROUGH MOST OF THE SHIFT. ART PSYCHOTHERAPIST OR THERAPIST AND HOURLY ROUNDING COMPLETED DOCUMENTED.
[2017-05-20 08:00] VITALS: BP 119/50
--- NOTE | 2017-05-20 16:20 | NUR ---
PT PLEASANTLY CONFUSED THROUGHOUT SHIFT. OCASSIONALLY CONVERSES WITH STAFF. PT INCONTINENT AT TIMES. UP TO BSC WITH ASSIST. PT IN CHAIR MOST OF SHIFT. NO REDNESS NOTED TO BLE. PT EATING WELL
[2017-05-20 16:34] VITALS: BP 101/50
[2017-05-20 19:58] VITALS: BP 128/64
--- NOTE | 2017-05-21 04:46 | NUR ---
ASSUMED CARE OF PT AT 1900, PT ALERT BUT UNABLE TO ASSESS ORIENTATION D/T COGNITION. PTS VS AND ASSESSMENT STABLE. PT VOICED NO COMPLAINTS AND SLEPT THROUGH THE NIGHT. WILL MONITOR
[2017-05-21 05:10] LABS: ALBUMIN 2.9 g/dL (3.4-5.0); CALCIUM 8.4 mg/dL (8.5-10.1); CREATININE 0.9 mg/dL (0.6-1.3); MAGNESIUM 1.6 mg/dL (1.8-2.4); POTASSIUM 3.7 mmol/L (3.5-5.1); TOTAL BILIRUBIN 0.6 mg/dL (<0.1-1.0); TOTAL PROTEIN 7.3 g/dL (6.4-8.2)
[2017-05-21 05:25] LABS: HEMATOCRIT 29.2 % (42.0-52.0); HEMOGLOBIN 9.8 gm/dL (14.0-18.0); MCH 28.5 pg (26.0-34.0); MCHC 33.5 g/dL (28.0-37.0); MCV 84.9 fL (80.0-100.0); MPV 10.1 fl. (7.2-11.1); RBC 3.44 mil/uL (4.50-6.00); RDW-CV 14.7 % (10.5-14.5); WBC 2.1 thou/uL (4.0-11.0)
--- NOTE | 2017-05-21 07:49 | CON ---
[address] [address] CONSULTATION Name: LIDADICK Mello Room: [address] IN M.R.#: [id number] Admission: 05/17/17 Attend Phys: Derian Hewitt MD Discharge: Date of : 64 Report #: [id number] THIS REPORT FOR: //name// CC: Derian Hewitt Deonna Shreve DATE OF SERVICE: 05/18/2017 ATTENDING PHYSICIAN: Derian Hewitt MD. REASON FOR EVALUATION: Bilateral lower extremity inflammatory eruption, suspected component of cellulitis, may well have venous stasis insufficiency as well. HISTORY OF PRESENT ILLNESS: Chart reviewed, patient examined. A 57-year-old gentleman, who I am familiar with back in April, does have underlying developmental disability, felt to be a variation of Down syndrome. He does live in a long-term. He was hospitalized last month with upper gastrointestinal hemorrhage that was dealt with. He was discharged home on 05/03/2017. Over the course of last 4-5 days, had noted per staff increasing redness, swelling involving the bilateral lower extremities, was not referenced to any antecedent injury and he was readmitted, placed on empiric parenteral antimicrobial therapy. Today, he is per his ecommerce analyst better. Per nurse, the overall degree of inflammation is diminished and fairly noticeably. He is unable to give additional history. He has been afebrile. Blood cultures are sterile. ALLERGIES: LISTED TO PHENYLPROPANOLAMINE, CHLORPHENIRAMINE, PENICILLINS, QUINOLONES, LATEX AND TETANUS TOXOID. CURRENT MEDICATIONS: Include pantoprazole, vancomycin, p.r.n. analgesics, antiemetics, did receive some furosemide as well. PAST MEDICAL HISTORY: As above described. Down syndrome, history of diabetes mellitus, has got a cardiomyopathy, history of congestive heart failure, previous history of middle finger amputation, osteomyelitis. SOCIAL HISTORY: Nonsmoker, no ethanol. FAMILY HISTORY: Noncontributory. REVIEW OF SYSTEMS: Not reliably obtained. PHYSICAL EXAMINATION: GENERAL: Does have general appearance of Down syndrome. He does arouse. He is actually fairly engaged. He is clutching several stuffed animals. It is not clear that he is [place] [address] CONSULTATION Name: DICK HILTON Room: [address] IN [facility]#: [id number] Admission: 05/17/17 Attend Phys: Derian Hewitt MD Discharge: Date of : 64 Report #: [id number] VITAL SIGNS: Temperature 97.8, pulse 85, respirations 18, blood pressure 137/59. SKIN: Warm, dry, no rashes. HEENT: Otherwise unchanged from baseline. NECK: Supple. LUNGS: Diminished, although has clear breath sounds. ABDOMEN: Soft, nontender. HEART: Regular. EXTREMITIES: Bilateral lower extremities have a mild to moderate degree of inflammation noted. There is some dermopathy that suggests possible venous stasis insufficiency. There are no open lesions and ulcers. There are no bullous lesions. I do not appreciate any focal areas of subcutaneous inflammatory masses or nodules. Distal pulses are present, although slightly diminished. GENITOURINARY AND RECTAL: Deferred. LABORATORY DATA: Blood cultures sterile thus far. CBC: White count of 1.9, H and H 9.0 and 26.8, platelets of 131. It is notable this is a new finding during previous hospitalization has a relatively normal white count, although is on the lower end. Electrolytes: Sodium 141, potassium 3.6, chloride 102, bicarbonate is 33, anion gap of 6, BUN and creatinine 9 and 0.9, estimated GFR of 88, glucose of 82. CT showed a chronic stable T12 compression fracture. The lumbar spine CT was otherwise unremarkable. Sodium 139, potassium 3.7, chloride 101, bicarbonate is 32. LFTs unremarkable. Albumin 3, total protein 7.7. ASSESSMENT AND PLAN: Bilateral lower extremity inflammatory eruption by indirect accounts, overall improved and certainly could add a component of infection, although it is somewhat unusual to have bilateral lower extremity cellulitis in the absence of sort of injury. Continue elevation. I do not know if he tolerates compression. New finding, however, is pancytopenia. This I would think would be reactive situation, would simply monitor, may certainly recover as he improves. Continue empiric therapy at least another 24-48 hours. <ELECTRONICALLY SIGNED> By: Dexter Morillo MD 05/21/17 0749 1140 [id number] Morillo MD /nt
[2017-05-21 08:00] VITALS: BP 142/70
[2017-05-21] MEDS ORDERED: KEFLEX250 MG PO (12:30)
[2017-05-21] MEDS ORDERED: TRIAMCINOLONE A80 G2 TOP (12:35)
[2017-05-21 12:36] VITALS: BP 142/70
[2017-05-21 13:59] VITALS: BP 142/70
--- NOTE | 2017-05-21 14:00 | NUR ---
JOHANNY called and spoke with Marium who plans to pick up operator pt at 3:30 pm. JOHANNY faxed dc orders/med list to Marium. JOHANNY called guardian and informed of pt dc home today and faxed dc orders. JOHANNY faxed HH orders, referral[facility]. No other needs/concerns expressed.
[2017-05-21 16:11] VITALS: BP 132/72
--- NOTE | 2017-05-21 17:34 | NUR ---
RESUMED CARE THIS AM. A/O X 1, UP WITH STANDBY ASSIST, NO DISTRESS NOTED. DISCHARGE ORDERS RECEIVED, DISCHARGE INSTRUCTIONS, FOLLOW UP APPOINTMENT, PRESCRIPTIONS DISCUSSED WITH AND GIVEN TO AVIATION MAINTENANCE INSTRUCTOR AT BEDSIDE. PHOTOS OF BLE IN CHART, PATIENT DRESSED, TRANSPORTED TO FRONT ENTRANCE VIA WHEELCHAIR IN STABLE CONDITION, ALL PERSONAL EFFECTS GATHERED AND ACCOUNTED FOR, IN COMPANY OF AVIATION MAINTENANCE INSTRUCTOR FOR ASSISTED.
--- NOTE | 2017-05-26 13:56 | CON ---
[address] [address] CONSULTATION Name: LIDADICK Funmilayo Room: [address] IN .R.#: [id number] Admission: 05/17/17 Attend Phys: Derian Hewitt MD Discharge: 05/21/17 Date of : 64 Report #: [id number] THIS REPORT FOR: //name// CC: Derian Hewitt Deonna Borup DATE OF SERVICE: 05/18/2017 REQUESTING PHYSICIAN: Derian Hewitt MD REASON FOR CONSULTATION: Thrombocytopenia. HISTORY OF PRESENT ILLNESS: The patient is an unfortunately 57-year-old man with developmental delay who was admitted to the hospital with cellulitis. He was initially seen in the Emergency Room, was given oral antibiotics and was sent home, but now he is back in the hospital with cellulitis, on IV antibiotics. I am consulted for thrombocytopenia. The patient is not able to give me any history. He has 1:1 observation ordered. I am unable to get any history from him. PAST MEDICAL HISTORY: Reviewed from chart, positive for cellulitis, diarrhea, gastric ulcer, mental retardation, history of renal failure. REVIEW OF SYSTEMS: Unable to obtain. PHYSICAL EXAMINATION: GENERAL: Reveals a 57-year-old man, not in acute distress. VITAL SIGNS: Blood pressure 137/59, heart rate is 85, temperature 97.8, respirations 16. NECK: Supple. HEART: Normal S1, S2. LUNGS: Clear. EXTREMITIES: Lower extremity exam shows +1 edema and erythema. LABORATORY DATA: White count on admission 2.2, today 1.9. His baseline white count is normal, hemoglobin 9.0, platelets 139, today is 131. Total protein 7.7, albumin 3.0. ASSESSMENT AND PLAN: Thrombocytopenia, most common cause of such as developing thrombocytopenia and leukopenia is usually is a viral infection or medications. I do not see any medications which can cause sudden drop of leukocytes and thrombocytes in this case. Plan to check folate and vitamin B12. His thrombocytopenia and leukopenia is quite mild. He recently had an abdominal ultrasound done, which did not show significant splenomegaly, showed borderline size spleen. Continue to follow up. Continue to monitor CBC at this point. I do not recommend [place] [address] CONSULTATION Name: DICK HILTON Room: [address] IN ..#: [id number] Admission: 05/17/17 Attend Phys: Derian Hewitt MD Discharge: 05/21/17 Date of : 64 Report #: [id number] Thank you very much for allowing me to participate in the care of this patient. <ELECTRONICALLY SIGNED> By: Gina Floyd MD 05/26/17 1356 1418 [id number] Eubanks MD /nt
== END 2017-05-21 17:39 | disposition home health service (06) | DRG 602 ==
LOC: M.ERS 14:48 → M.3W 15:20 → M.TBA-ER 15:20 → M.3W 18:05
PROVIDERS: Internal Medicine; Internal Medicine Hematology & Oncology; Nurse Practitioner Family; ADMIT Internal Medicine
DX: L03.116 Cellulitis of left lower limb (principal); G93.40 Encephalopathy, unspecified; R65.10 Systemic inflammatory response syndrome (SIRS) of non-infectious origin without acute organ dysfunction; K27.9 Peptic ulcer, site unspecified, unspecified as acute or chronic, without hemorrhage or perforation; R62.50 Unspecified lack of expected normal physiological development in childhood; E11.9 Type 2 diabetes mellitus without complications; L03.115 Cellulitis of right lower limb; D69.6 Thrombocytopenia, unspecified; D75.9 Disease of blood and blood-forming organs, unspecified; I50.9 Heart failure, unspecified; I87.2 Venous insufficiency (chronic) (peripheral); Z86.718 Personal history of other venous thrombosis and embolism; Z79.01 Long term (current) use of anticoagulants; Z88.0 Allergy status to penicillin; Z88.8 Allergy status to other drugs, medicaments and biological substances; Z88.1 Allergy status to other antibiotic agents; Z91.040 Latex allergy status; Z79.82 Long term (current) use of aspirin; Z79.899 Other long term (current) drug therapy; Q90.9 Down syndrome, unspecified; Z89.111 Acquired absence of right hand; Z79.4 Long term (current) use of insulin; Z87.19 Personal history of other diseases of the digestive system

== ENCOUNTER → 2017-09-18 | Outpatient (CLI) | payer MEDICARE, MEDICAID ==
[~2017-09-18] MED LIST changes: +CLONAZEPAM 0.50.5 M1 PO; +DEPAKOTE 250MG250 M1 PO; +GEODON40 MG PO; +HUMALOG KW100 UNIT/1 SUBQ; +KEFLEX250 MG PO; +TRIAMCINOLONE A80 G2 TOP
== END ==
LOC: M.CT 09:30
DX: I70.0 Atherosclerosis of aorta (principal); G31.9 Degenerative disease of nervous system, unspecified; R46.89 Other symptoms and signs involving appearance and behavior

== ENCOUNTER 2018-01-15 11:12 | Inpatient (IN) | payer MEDICARE, MEDICAID ==
[~2018-01-15] VITALS: Ht 152.4 cm; Wt 89.7 kg
[~2018-01-15 11:12] MED LIST changes: -CLONAZEPAM 0.50.5 M1 PO; -DEPAKOTE 250MG250 M1 PO; -GEODON40 MG PO; -HUMALOG KW100 UNIT/1 SUBQ
[2018-01-15 11:20] VITALS: BP 109/74
[2018-01-15] MEDS ORDERED: DEPAKOTE 250MG250 M1 PO (11:29)
[2018-01-15] MEDS ORDERED: GEODON40 MG PO (11:29)
[2018-01-15] MEDS ORDERED: CLONAZEPAM 0.50.5 M1 PO (11:35)
[2018-01-15 11:56] LABS: ABSOLUTE LYMPHOCYTES 1.1 thou/uL (0.8-5.3); ABSOLUTE MONOCYTES 0.2 thou/uL (0.0-1.2); BASOPHILS 0.8 %; HEMATOCRIT 38.3 % (42.0-52.0); HEMOGLOBIN 13.2 gm/dL (14.0-18.0); LYMPHOCYTES 32.8 %; MCH 29.2 pg (26.0-34.0); MCHC 34.4 g/dL (28.0-37.0); MCV 84.9 fL (80.0-100.0); MONOCYTES 6.5 %; MPV 10.5 fl. (7.2-11.1); NUCLEATED RBCS 0 /100WBC; PLATELET COUNT* 87 thou/uL (150-400); POLYS 58.9 %; RBC 4.52 mil/uL (4.50-6.00); WBC 3.4 thou/uL (4.0-11.0)
[2018-01-15 12:03] LABS: APTT 28.6 Seconds (25.0-31.3); INR 1.1; PROTIME 11.1 Seconds (9.20-11.50)
[2018-01-15 12:04] LABS: ANION GAP 3 mmol/L (7-16); BUN 20 mg/dL (7-18); CALCIUM 8.9 mg/dL (8.5-10.1); CHLORIDE 99 mmol/L (98-107); CO2 34 mmol/L (21-32); CREATININE 0.8 mg/dL (0.6-1.3); GLUCOSE 202 mg/dL (70-99); POTASSIUM 3.9 mmol/L (3.5-5.1); SODIUM 136 mmol/L (136-145)
[2018-01-15 12:15] LABS: ALBUMIN 3.5 g/dL (3.4-5.0); ALKALINE PHOSPHATASE 78 U/L (46-116); NT-PRO BRAIN NAT PEPTIDE 113 pg/mL (<300); SGOT 22 U/L (15-37); SGPT 36 U/L (30-65); TOTAL BILIRUBIN 0.9 mg/dL (<0.1-1.0); TOTAL PROTEIN 7.8 g/dL (6.4-8.2); TROPONIN-I LEVEL <0.06 ng/mL (<0.06)
--- NOTE | 2018-01-15 15:32 | EKG ---
[place] [address] ELECTROCARDIOGRAM REPORT Name: DICK HILTON Room: [address] [place] [address] ADM IN ..#: [id number] Admission: 01/15/18 Attend Phys: Cara Ledesma Discharge: Date of : 64 Report #: [id number] THIS REPORT FOR: //name// [facility] ED Test Date: 2018-01-15 Test Time: 11:55:05 Pat Name: DICK HILTON Department: Room: [facility] Gender: M Fieldwork Coordinator: ABUNDIO : 1960 Requested By: Jacob Fontana Order Number: [id number] MD: Elbert Sawyer Measurements Intervals [place] Rate: 78 P: 0 DE: QRS: -42 QRSD: 79 T: 103 QT: 377 QTc: 430 Interpretive Statements nsr Left ventricular hypertrophy Anterolateral infarct, age indeterminate Baseline wander in lead(s) V1,V2 Compared to ECG 04/28/2017 20:16:17 AV dissociation now present Left ventricular hypertrophy now present Sinus rhythm no longer present Left anterior fascicular block no longer present T-wave abnormality no longer present Myocardial infarct finding still present Electronically Signed On 01-15-2018 15:32:31 CDT by Elbert Sawyer [email or web address] <ELECTRONICALLY SIGNED> By: Elbert Sawyer MD, [facility] 01/15/18 1532 1155 1155 Elbert Sawyer MD, FAC /EPI
[2018-01-15 17:35] VITALS: BP 156/69
[2018-01-15 18:05] VITALS: BP 144/60
[2018-01-15 20:00] VITALS: BP 132/56
[2018-01-16] VITALS (7 sets, daily range): BP systolic 106–138; BP diastolic 58–72
[2018-01-16 12:49] LABS: ALBUMIN 3.1 g/dL (3.4-5.0); CALCIUM 8.9 mg/dL (8.5-10.1); CREATININE 0.9 mg/dL (0.6-1.3); POTASSIUM 4.1 mmol/L (3.5-5.1); TOTAL BILIRUBIN 1.1 mg/dL (<0.1-1.0); TOTAL PROTEIN 7.2 g/dL (6.4-8.2)
[2018-01-16 23:08] LABS: GLYCOHEMOGLOBIN (HGB A1C) 5.3 % (4.8-5.6)
[2018-01-17] VITALS: BP 135/57
[2018-01-17 04:00] VITALS: BP 114/57
[2018-01-17 05:17] LABS: CHOLESTEROL 175 mg/dL (<200); HDL CHOLESTEROL 35 mg/dL (>40); LDL CHOLESTEROL 122 mg/dL (<100); TRIGLYCERIDE 91 mg/dL (<150); VLDL 18 mg/dL (<40)
[2018-01-17 05:21] LABS: SERUM ASSESSMENT CLEAR
[2018-01-17 08:02] VITALS: BP 150/82
[2018-01-17 11:30] VITALS: BP 144/71
--- NOTE | 2018-01-23 11:59 | CON ---
[address] [address] CONSULTATION Name: LIDADICK Funmilayo Room: [address] IN M.R.#: [id number] Admission: 01/15/18 Attend Phys: Cara Ledesma Discharge: 01/17/18 Date of : 64 Report #: [id number] THIS REPORT FOR: //name// CC: Justin Lee HISTORY OF PRESENT ILLNESS: The patient is a 57-year-old male with severe intellectual disabilities. He is unable to provide any history. The patient is typically able to ambulate on his own and dress himself. However, he has had an intermittent weakness for 2 or 3 days and has had an unsteady gait. Last week, he was begun on Depakote 250 mg twice a day. His Depakote level is therapeutic at 52. I suspect he was begun on this medication by a psychiatrist for behavioral problems. The staff thought he was having side effects from the medication, but it was continued. PAST MEDICAL HISTORY: Severe intellectual disability with behavioral changes. PAST SURGICAL HISTORY: Unremarkable. MEDICATIONS: Aspirin 81 mg daily, atorvastatin 10 mg at bedtime, clonazepam 0.5 mg b.i.d., trazodone 50 mg at bedtime, Lantus insulin, Carafate 1 gram 4 times a day, Geodon 40 mg in the morning. ALLERGIES: SYMPATHOMIMETICS, LATEX, LEVOFLOXACIN, PENICILLIN, QUINOLONES, TETANUS TOXOID, PHENYLPROPANOLAMINE, CHLORPHENIRAMINE, ANTIHEMOLYTIC FACTOR. PHYSICAL EXAMINATION: VITAL SIGNS: Temperature is 36.5, pulse rate 79, respiratory rate 18, blood pressure 138/65, bedside pulse oximetry 99% on room air. NEUROLOGIC: Cranial nerves 2-12 are grossly intact. The patient was able to move all 4 extremities. He could not cooperate with cescrb-ho-zuyq testing. Gait was not tested. LABORATORY DATA: White blood cell count 3.4, hemoglobin 13.2, hematocrit 38.3, MCV 84.9, platelet count 87,000. INR 1.1. Chemistry: Sodium 134, potassium 4.1, chloride 98, carbon dioxide 32, BUN 19, creatinine 0.9, GFR 88, glucose 186, calcium 8.9. Liver functions normal. IMAGING STUDIES: Carotid Doppler unremarkable. CT scan of the head, no acute intracranial process. IMPRESSION AND PLAN: By the report of both the day and night nurse, the patient has returned to his baseline. Earlier in the day, I discontinued Depakote, so he did not receive an evening dose. He would have received the second dose of Depakote at 9:00 p.m., so he would not have received it by now. Whether or not the Depakote has played a part in these symptoms is unknown, but I probably would not recommend that he go back on this drug [place] [address] CONSULTATION Name: LIDADICK Funmilayo Room: [address] IN .R.#: [id number] Admission: 01/15/18 Attend Phys: Cara Ledesma Discharge: 01/17/18 Date of : 64 Report #: [id number] psychiatric medications including ziprasidone and clonazepam should be reviewed. Beyond that, I have no other suggestions. I thank you for your kind referral of the patient. <ELECTRONICALLY SIGNED> By: Disha Long DO 01/23/18 1159 [id number] Long DO /jania
== END 2018-01-17 14:45 | disposition home or self-care (01) | DRG 71 ==
LOC: M.ERS 11:12 → M.2W 13:05 → M.TBA-ER 13:05 → M.2W 17:44
PROVIDERS: Family Medicine; ADMIT Internal Medicine
DX: G93.41 Metabolic encephalopathy (principal); G45.9 Transient cerebral ischemic attack, unspecified; R65.10 Systemic inflammatory response syndrome (SIRS) of non-infectious origin without acute organ dysfunction; F72 Severe intellectual disabilities; R26.9 Unspecified abnormalities of gait and mobility; E11.9 Type 2 diabetes mellitus without complications; I50.9 Heart failure, unspecified; Z89.021 Acquired absence of right finger(s); Z86.73 Personal history of transient ischemic attack (TIA), and cerebral infarction without residual deficits; Z88.0 Allergy status to penicillin; Z88.7 Allergy status to serum and vaccine; Z88.8 Allergy status to other drugs, medicaments and biological substances; Z88.1 Allergy status to other antibiotic agents; Z91.040 Latex allergy status; Q90.9 Down syndrome, unspecified

== ENCOUNTER 2018-02-05 13:20 | Inpatient (IN) | payer MEDICARE, MEDICAID ==
[~2018-02-05] VITALS: Ht 154.9 cm; Wt 59.0 kg
[~2018-02-05 13:20] MED LIST changes: +CLONAZEPAM 0.50.5 M1 PO; +DEPAKOTE 250MG250 M1 PO; +GEODON40 MG PO
[2018-02-05 13:34] VITALS: BP 141/65
[2018-02-05 14:49] LABS: ABSOLUTE LYMPHOCYTES 1.6 thou/uL (0.8-5.3); ABSOLUTE MONOCYTES 0.3 thou/uL (0.0-1.2); BASOPHILS 0.7 %; HEMATOCRIT 36.9 % (42.0-52.0); HEMOGLOBIN 12.5 gm/dL (14.0-18.0); LYMPHOCYTES 31.8 %; MCH 28.7 pg (26.0-34.0); MCHC 33.8 g/dL (28.0-37.0); MCV 84.7 fL (80.0-100.0); MPV 8.8 fl. (7.2-11.1); NUCLEATED RBCS 0 /100WBC; PLATELET COUNT* 155 thou/uL (150-400); POLYS 60.5 %; RBC 4.36 mil/uL (4.50-6.00); RDW-CV 15.2 % (10.5-14.5); WBC 4.9 thou/uL (4.0-11.0)
[2018-02-05 15:00] LABS: ANION GAP 3 mmol/L (7-16); BUN 14 mg/dL (7-18); CALCIUM 8.7 mg/dL (8.5-10.1); CHLORIDE 100 mmol/L (98-107); CO2 36 mmol/L (21-32); CREATININE 0.7 mg/dL (0.6-1.3); GLUCOSE 46 mg/dL (70-99); SODIUM 139 mmol/L (136-145)
[2018-02-05 15:11] LABS: ALBUMIN 3.2 g/dL (3.4-5.0); ALKALINE PHOSPHATASE 82 U/L (46-116); LIPASE 84 U/L (73-393); NT-PRO BRAIN NAT PEPTIDE 168 pg/mL (<300); SGOT 19 U/L (15-37); SGPT 29 U/L (30-65); TOTAL BILIRUBIN 0.7 mg/dL (<0.1-1.0); TOTAL PROTEIN 7.8 g/dL (6.4-8.2); TROPONIN-I LEVEL <0.06 ng/mL (<0.06)
[2018-02-05 15:21] LABS: URINE BILIRUBIN NEGATIVE (Negative); URINE BLOOD NEGATIVE (Negative); URINE CLARITY CLEAR; URINE COLOR YELLOW; URINE GLUCOSE-RANDOM NEGATIVE (Negative); URINE KETONES NEGATIVE (Negative); URINE LEUKOCYTES-REFLEX NEGATIVE (Negative); URINE NITRITE-REFLEX NEGATIVE (Negative); URINE PROTEIN NEGATIVE (Negative); URINE SPECIFIC GRAVITY <= 1.005 (1.005-1.030); URINE UROBILINOGEN 0.2 E.U./dl (0.2-1.0)
[2018-02-05 15:30] LABS: AMP/METHAMP Negative (Negative); BARBITURATES Negative (Negative); BENZODIAZEPINES Negative (Negative); COCAINE Negative (Negative); METHADONE Negative (Negative); OPIATES Negative (Negative); PCP Negative (Negative); THC Negative (Negative)
[2018-02-05 15:40] LABS: BE 3.4 mmol/L (-2 to +3); HCO3 29.3 mmol/L (22.0-26.0); pH 7.379 (7.340-7.450)
[2018-02-05 15:41] LABS: PCO2 50.7 mmHg (35.0-45.0); PO2 147.7 mmHg (75.0-100.0)
[2018-02-05 16:42] VITALS: BP 141/64
--- NOTE | 2018-02-05 17:53 | NUR ---
PT ADMITTED FROM ER. HISTORY AND ASSESSMENT COMPLETED PER GERALDINE WOODS. PRIMARY SCHOOL PRINCIPAL WITH PT. PRIMARY SCHOOL PRINCIPAL REPORTS THAT THE PT IS INCONT OF BOWEL AND BLADDER. PT WITH DOWNS SYNDROME. ACCU CHECKS ORDERED Q1H. IVF INFUSING. PT DENIES PAIN.
[2018-02-05 19:00] VITALS: BP 108/72
[2018-02-05 22:00] VITALS: BP 152/90
[2018-02-06] VITALS (21 sets, daily range): BP systolic 113–196; BP diastolic 54–89
--- NOTE | 2018-02-06 06:30 | NUR ---
CARE ASSUMMED. PT AWAKE AND ALERT. SKIN W/D NO ACUTE DISTRESS NOTED. LOAN INTERVIEWER MORTG[employer] INTACT. DR GONZALES NOTIFIED AT 2144 OF CURRENT BLOOD GLUCOSE RESULTS AND ACCU CHECKS CHANGED TO Q4 HOURS. CAREGIVER HAS REMAINED AT BEDSIDE. PT HAS BEEN CALM AND COOPERATIVE, PT ASSISTED BACK TO CHAIR. LOAN INTERVIEWER MORTGAGE INTACT WITH [employer] SET. VSS AND NO ACUTE CHANGES DURING SHIFT, WILL CONTINUE TO MONITOR
--- NOTE | 2018-02-06 11:00 | NUR ---
PT KNOWN TO CASE MGT FROM PREVIOUS ADMISSION. PT LIVES IN A NURSING HOME, NORMALLY DOES WELL THERE, IS ABLE TO AMBULATE, DOESN'T SPEAK BUT CAN SOMEWHAT MAKE HIS NEEDS KNOWN. PEDIATRIC ANESTHESIOLOGIST AT THE BEDSIDE WITH HIM. PT'S GUARDIAN IS [facility] PUBLIC SHEET METAL WORKER APPRENTICE, CALLED ([phone]) AND SPOKE WITH MONO TO NOTIFY HIM OF PT'S ADMISSION, HE GIVES CONSENT TO TREAT AND ASKS TO BE CALLED WHEN PT IS DISCHARGED, OR WITH ANY OTHER NEEDS.
[2018-02-06 12:36] LABS: CREATININE 0.7 mg/dL (0.6-1.3); MAGNESIUM 1.3 mg/dL (1.8-2.4); POTASSIUM 3.7 mmol/L (3.5-5.1)
--- NOTE | 2018-02-06 17:22 | EKG ---
[place] [address] ELECTROCARDIOGRAM REPORT Name: DICK HILTON Room: [address] ADM IN M.R.#: [id number] Admission: 02/05/18 Attend Phys: Mira Troncoso Discharge: Date of : 64 Report #: [id number] THIS REPORT FOR: //name// [facility] ED Test Date: 2018-02-05 Test Time: 15:00:25 Pat Name: DICK HILTON Department: Room: [facility] Gender: M Proof Operator: Valencia FALL : 1960 Requested By: Dionicio Dyer Order Number: [id number] MD: Diony Hahn Measurements Intervals [place] Rate: 65 P: -28 ME: 226 QRS: -57 QRSD: 93 T: 51 QT: 448 QTc: 466 Interpretive Statements Sinus rhythm Prolonged ME interval Left ventricular hypertrophy Inferior infarct, old Anterior infarct, old Compared to ECG 01/15/2018 11:55:05 First degree AV block now present Myocardial infarct finding still present Electronically Signed On 02-06-2018 17:22:15 CDT by Diony Hahn [email or web address] <ELECTRONICALLY SIGNED> By: Diony Hahn MD, FACC 02/06/18 1722 1500 1500 Diony Hahn MD, FAC /EPI
--- NOTE | 2018-02-06 18:34 | NUR ---
PT ASSESSMENT CHARTED. VSS THROUGHOUT SHIFT. NO COMPLAINTS OF PAIN. UP TO CHAIR X2. CAREGIVER IN ROOM UNTIL BEFORE DINNER. PT PULLED OUT BOTH IV'S AFTER THE CAREGIVER LEFT. PT EATING WELL. NO OTHER COMPLAINTS DURING SHIFT.
--- NOTE | 2018-02-06 19:31 | NUR ---
INITAL ASSESSMENT COMPLETED. PT INCONTINENT OF LARGE AMOUNT OF URINE. BED CHANGED, GIULIANO CARE DONE. BED ALARM ON.
[2018-02-06 20:07] LABS: MAGNESIUM 3.1 mg/dL (1.8-2.4); POTASSIUM 3.7 mmol/L (3.5-5.1)
--- NOTE | 2018-02-06 21:41 | NUR ---
PT RESTLESS AND IMPULSIVE. PT PULLED OUT SALINE LOCK. PT INCONTINENT OF LARGE AMOUNT OF URINE. PLACE [place] CATHETER IN ATTEMPT TO PREVENT INCONTINENCE. SPOKE WITH DR JUAREZ AND RECIEVED ORDERS TO DISCONTINUE IV.
--- NOTE | 2018-02-06 22:05 | NUR ---
PT REMOVED EXTERNAL CATHETER. NO ATTEMPT MADE TO REPLACE.
[2018-02-07] VITALS: BP 123/63
[2018-02-07 01:00] VITALS: BP 120/72
--- NOTE | 2018-02-07 01:17 | NUR ---
pt pulled off monitor leads. attempted to replace but pt began yelling loudly. pt medical status. monitoring suspended.
[2018-02-07 07:00] VITALS: BP 136/77
--- NOTE | 2018-02-07 07:30 | NUR ---
RN ASSUMED CARE OF PT THIS AM. PT ALERT AND SITTING UP IN CHAIR. DOES NOT APPEAR TO BE IN ANY PAIN. VSS. AFEBRILE. GOALS FOR TODAY INCLUDE DISCHARGING OR GOING UP TO TELE OR MED SURG UNIT.
[2018-02-07 08:01] VITALS: BP 137/71
[2018-02-07 09:28] VITALS: BP 137/71
[2018-02-07] MEDS ORDERED: HUMALOG KW100 UNIT/1 SUBQ (10:03)
--- NOTE | 2018-02-07 10:25 | NUR ---
PT BEING DISCHARGED TODAY, RETURNING TO HIS [facility]. [facility] [facility] IS HERE AND CAN TAKE PT HOME. CALLED PRISON ([phone]) TO NOTIFY THEM OF DISCHARGE. THEY ONLY NEED DISCHARGE PAPERWORK, WILL SEND WITH [facility] [employer]. CALLED [facility] OFFICE ([phone]) AND LEFT TO NOTIFY THEM OF DISCHARGE.
== END 2018-02-07 10:45 | disposition designated cancer center or children's hospital (05) | DRG 91 ==
LOC: M.ERS 13:20 → M.TBA-ER 15:47 → M.ICU 15:47
PROVIDERS: Emergency Medicine; ADMIT Internal Medicine
DX: G92 Toxic encephalopathy (principal); J96.00 Acute respiratory failure, unspecified whether with hypoxia or hypercapnia; L03.116 Cellulitis of left lower limb; L03.115 Cellulitis of right lower limb; I50.9 Heart failure, unspecified; T50.905A Adverse effect of unspecified drugs, medicaments and biological substances, initial encounter; E87.6 Hypokalemia; E11.649 Type 2 diabetes mellitus with hypoglycemia without coma; Q90.9 Down syndrome, unspecified; Z89.021 Acquired absence of right finger(s); Z88.0 Allergy status to penicillin; Z88.7 Allergy status to serum and vaccine; Z88.8 Allergy status to other drugs, medicaments and biological substances; Z88.1 Allergy status to other antibiotic agents; Z91.040 Latex allergy status; Z79.82 Long term (current) use of aspirin; Z79.899 Other long term (current) drug therapy

== ENCOUNTER 2018-06-08 11:13 | Emergency (ER) | payer MEDICARE, MEDICAID ==
[~2018-06-08] VITALS: Ht 165.1 cm; Wt 58.5 kg
[~2018-06-08 11:13] MED LIST changes: +HUMALOG KW100 UNIT/1 SUBQ
[2018-06-08 12:52] VITALS: BP 129/66
== END 2018-06-08 12:54 | disposition home or self-care (01) ==
LOC: M.ERS 11:13
DX: S00.83XA Contusion of other part of head, initial encounter (principal); E11.9 Type 2 diabetes mellitus without complications; I50.9 Heart failure, unspecified; Z91.040 Latex allergy status; Z88.0 Allergy status to penicillin; Z88.1 Allergy status to other antibiotic agents; Z88.7 Allergy status to serum and vaccine; Z88.8 Allergy status to other drugs, medicaments and biological substances; Z79.4 Long term (current) use of insulin; Z89.021 Acquired absence of right finger(s); W18.2XXA Fall in (into) shower or empty bathtub, initial encounter; Y93.89 Activity, other specified; Y92.098 Other place in other non-institutional residence as the place of occurrence of the external cause; Y99.8 Other external cause status

== ENCOUNTER 2018-07-04 12:31 | Emergency (ER) | payer MEDICARE, MEDICAID ==
[~2018-07-04] VITALS: Ht 170.2 cm; Wt 59.9 kg
[2018-07-04 13:48] LABS: HEMATOCRIT 37.8 % (42.0-52.0); HEMOGLOBIN 13.2 gm/dL (14.0-18.0); MCH 30.2 pg (26.0-34.0); MCHC 34.9 g/dL (28.0-37.0); MCV 86.6 fL (80.0-100.0); MPV 10.7 fl. (7.2-11.1); NUCLEATED RBCS 0 /100WBC; PLATELET COUNT* 121 thou/uL (150-400); RBC 4.37 mil/uL (4.50-6.00); WBC 13.5 thou/uL (4.0-11.0)
[2018-07-04 13:57] LABS: ALBUMIN 2.9 g/dL (3.4-5.0); CALCIUM 9.3 mg/dL (8.5-10.1); CREATININE 1.1 mg/dL (0.6-1.3); TOTAL BILIRUBIN 1.6 mg/dL (<0.1-1.0); TOTAL PROTEIN 7.4 g/dL (6.4-8.2)
[2018-07-04 13:58] LABS: INFLUENZA A ANTIGEN None Detected (None Detect); INFLUENZA B ANTIGEN None Detected (None Detect)
[2018-07-04 14:13] LABS: ABSOLUTE LYMPHOCYTES 0.8 thou/uL (0.8-5.3); ABSOLUTE MONOCYTES 0.5 thou/uL (0.0-1.2); ABSOLUTE NEUTROPHILS 12.2 thou/uL (1.6-8.1); PLATELET ESTIMATE DECREASED
[2018-07-04 14:14] LABS: MICROCYTES 1+
[2018-07-04 14:15] LABS: LARGE PLATELETS OCCASIONAL
[2018-07-04 15:41] LABS: URINE BILIRUBIN NEGATIVE (Negative); URINE BLOOD NEGATIVE (Negative); URINE CLARITY CLEAR; URINE COLOR YELLOW; URINE GLUCOSE-RANDOM NEGATIVE (Negative); URINE KETONES NEGATIVE (Negative); URINE LEUKOCYTES-REFLEX NEGATIVE (Negative); URINE NITRITE-REFLEX NEGATIVE (Negative); URINE PROTEIN NEGATIVE (Negative); URINE SPECIFIC GRAVITY <= 1.005 (1.005-1.030); URINE UROBILINOGEN 0.2 E.U./dl (0.2-1.0)
[2018-07-04] MEDS ORDERED: ZPAK PO (15:54)
[2018-07-04 16:29] VITALS: BP 113/64
[2018-07-05] MEDS ORDERED: LEVEMIR SUBQ (15:47)
[2018-07-05] MEDS ORDERED: GEODON20 MG PO (15:51)
[2018-07-05] MEDS ORDERED: LASIX 40 MG TAB40 M2 PO (16:03)
[2018-07-05] MEDS ORDERED: SYNTHROID25 MC1 PO (16:05)
[2018-07-05] MEDS ORDERED: PANTOPRAZOLE SO40 M1 PO (16:06)
[2018-07-05] MEDS ORDERED: LISINOPRIL2.5 MG PO (16:06)
[2018-07-05] MEDS ORDERED: IRON325 PO (16:07)
[2018-07-05] MEDS ORDERED: DULCOLAX5 MG PO (16:09)
== END 2018-07-04 16:29 | disposition home or self-care (01) ==
LOC: M.ERS 12:31
PROVIDERS: Personal Emergency Response Attendant
DX: K59.00 Constipation, unspecified (principal); J02.9 Acute pharyngitis, unspecified; R53.1 Weakness; E11.9 Type 2 diabetes mellitus without complications; I50.9 Heart failure, unspecified; Z91.040 Latex allergy status; Z88.0 Allergy status to penicillin; Z88.1 Allergy status to other antibiotic agents; Z88.7 Allergy status to serum and vaccine; Z88.8 Allergy status to other drugs, medicaments and biological substances; Z79.4 Long term (current) use of insulin

== ENCOUNTER 2018-07-05 09:21 | Inpatient (IN) | payer MEDICARE, MEDICAID ==
[~2018-07-05] VITALS: Ht 167.6 cm; Wt 55.5 kg
[~2018-07-05 09:21] MED LIST changes: +ZPAK PO
[2018-07-05 09:35] VITALS: BP 112/59
--- NOTE | 2018-07-05 09:45 | NUR ---
ATTEMPT TO CONTACT SANGITA PUCKETT @ [phone], NO ANSWER OR NO ANSWERING SERVICE TO LEAVE MESSAGE, WILL TRY ONEAL.
[2018-07-05 10:30] LABS: HEMATOCRIT 36.5 % (42.0-52.0); HEMOGLOBIN 12.8 gm/dL (14.0-18.0); MCH 30.3 pg (26.0-34.0); MCHC 34.9 g/dL (28.0-37.0); MCV 86.7 fL (80.0-100.0); MPV 10.7 fl. (7.2-11.1); NUCLEATED RBCS 0 /100WBC; PLATELET COUNT* 104 thou/uL (150-400); RBC 4.21 mil/uL (4.50-6.00); RDW-CV 14.9 % (10.5-14.5); WBC 8.2 thou/uL (4.0-11.0)
[2018-07-05 10:39] LABS: ALBUMIN 2.7 g/dL (3.4-5.0); CALCIUM 8.5 mg/dL (8.5-10.1); CREATININE 0.8 mg/dL (0.6-1.3); POTASSIUM 4.2 mmol/L (3.5-5.1); TOTAL BILIRUBIN 0.9 mg/dL (<0.1-1.0); TOTAL PROTEIN 7.2 g/dL (6.4-8.2)
[2018-07-05 10:55] LABS: ABSOLUTE LYMPHOCYTES 0.6 thou/uL (0.8-5.3); ABSOLUTE MONOCYTES 0.5 thou/uL (0.0-1.2); ABSOLUTE NEUTROPHILS 7.1 thou/uL (1.6-8.1); ANISOCYTOSIS 1+; PLATELET ESTIMATE DECREASED; POIKILOCYTOSIS 1+
[2018-07-05 13:59] VITALS: BP 104/60
[2018-07-05 14:00] VITALS: BP 92/51
--- NOTE | 2018-07-05 14:00 | NUR ---
PATIENT ARRIVED ON UNIT AT 1400 VIA GURNEY AND ED SLEEP TECHNOLOGIST. PATIENT UNABLE TO STATE NAME OR DATE OF . PATIENT UNABLE TO EFFECTIVELY COMMUNICATE NEEDS TO STAFF. CAREGIVER AT BEDSIDE. PATIENT LIVES IN [place]. CAREGIVER WILL BE AT HOSPITAL FROM [facility] 7 AM UNTIL 5 PM WHILE HOSPITALIZED. CAREGIVER AVAILABLE FOR OVERNIGHT IF NEEDED. CONTACT DANIEL [phone]. [facility] PUBLIC PRODUCT MGMT DEV MANAGER IS GUARDIAN FOR THIS PATIENT. JACK FORTUNE, OFFICE OF [facility] PUBLIC PRODUCT MGMT DEV MANAGER GAVE VERBAL CONSENT TO TREAT THIS PATIENT. FREQUENT OBSERVATION FOR PATIENT WHO CANNOT EFFECTIVELY USE CALL LIGHT. HOURLY ROUNDING FOR SAFETY AND PT NEEDS.
[2018-07-05] MEDS ORDERED: LEVEMIR SUBQ (15:47)
[2018-07-05] MEDS ORDERED: GEODON20 MG PO (15:51)
[2018-07-05 16:00] VITALS: BP 125/68
[2018-07-05] MEDS ORDERED: LASIX 40 MG TAB40 M2 PO (16:03)
--- NOTE | 2018-07-05 16:03 | NUR ---
RIGHT CEPHALIC VESSEL [id number] FOR #20 VICTOR M POWERGLIDE MIDLINE. LINE ADVANCED TO THE HUB WITH NO RESISTANCE MET. FLUSHES FREELY WITH GOOD BRISK BLOOD RETURN. INSERTION SITE DRESSED AND REPORT GIVEN TO RICARDO CHANDLER.
[2018-07-05] MEDS ORDERED: SYNTHROID25 MC1 PO (16:05)
[2018-07-05] MEDS ORDERED: LISINOPRIL2.5 MG PO (16:06)
[2018-07-05] MEDS ORDERED: PANTOPRAZOLE SO40 M1 PO (16:06)
[2018-07-05] MEDS ORDERED: IRON325 PO (16:07)
[2018-07-05] MEDS ORDERED: DULCOLAX5 MG PO (16:09)
[2018-07-05 19:10] VITALS: BP 105/56
--- NOTE | 2018-07-05 23:00 | NUR ---
ASSESSMENT COMPLETED CHARTED. VSS. PT IS ALERT BUT NONVERBAL. NIH COMPLETED CHARTED. FROM REPORT RECEIVED FRO OFFGOING RN, RICARDO PT IS CURRENTLY AT BASELINE. TRACING SR WITH 1ST DEGREE ON MONITOR. HOURLY ROUNDING AND FALL PRECAUTIONS IN PLACE FOR PT SAFETY. CLWR.
[2018-07-06] VITALS (7 sets, daily range): BP systolic 119–129; BP diastolic 50–72
[2018-07-06 06:49] LABS: ALBUMIN 2.5 g/dL (3.4-5.0); ALKALINE PHOSPHATASE 85 U/L (46-116); ANION GAP 4 mmol/L (7-16); BUN 15 mg/dL (7-18); CALCIUM 8.5 mg/dL (8.5-10.1); CHLORIDE 103 mmol/L (98-107); CHOLESTEROL 152 mg/dL (<200); CO2 32 mmol/L (21-32); CREATININE 0.7 mg/dL (0.6-1.3); GLUCOSE 60 mg/dL (70-99); HDL CHOLESTEROL 30 mg/dL (>40); LDL CHOLESTEROL 108 mg/dL (<100); POTASSIUM 4.2 mmol/L (3.5-5.1); SGOT 28 U/L (15-37); SGPT 37 U/L (30-65); SODIUM 139 mmol/L (136-145); TC:HDL 5.1 Ratio (Not establshd); TOTAL BILIRUBIN 0.9 mg/dL (<0.1-1.0); TOTAL PROTEIN 6.8 g/dL (6.4-8.2); TRIGLYCERIDE 74 mg/dL (<150); VLDL 15 mg/dL (<40)
[2018-07-06 06:51] LABS: SERUM ASSESSMENT Clear
--- NOTE | 2018-07-06 11:54 | NUR ---
ASSUMED CARE OF PT AT 0730. PT RESTING IN BED. CAREGIVER AT BEDSIDE. PT ALERT AND AWAKE X1, ABLE TO SAY HIS NAME, INAPPROPRIATE AT TIMES. DOWN SYNDROME NOTED. FOLLOWS COMMANDS SOMEWHAT. NIH COMPLETED. REFER TO CHARTING. PT TRACING SR ON THE GRAIN RECEIVER. ON RA SAT UPPER 90'S. PT BLOOD GLUCOSE 60 THIS AM. APPLE JUICE GIVEN, RE CHECK 96. PT GOAL FOR TODAY IS TO BE SEEN BY NEUROLOGY, MONITOR NIH, MAINTAIN SAFETY AND PT, OT EVAL AND TREAT. AM ASSESSMENT CHARTED. MEDICATIONS PER JUN. PT REPOSITIONED EVERY 2 HOURS FOR COMFORT. HOURLY ROUNDING OBSERVED. BED IN LOW POSITION. BED ALARM IN PLACE. FALL PRECAUTIONS IN PLACE. CALL LIGHT WITHIN REACH. WILL CONTINUE PLAN OF CARE.
--- NOTE | 2018-07-06 18:03 | NUR ---
NO ACUTE CHANGES THROUGHOUT SHIFT. REFER TO CHARTING. PT PROGRESSING TOWARDS GOALS. SEEN BY NEUROLOGY-ORDERS RECEIVED FOR US CAROTIDS. REFER TO RESULTS. NIH REMAINS SAME- NO ACUTE CHANGES. PT WORKED WITH PHYSICAL THERAPY TODAY-TOLERATED WELL-AMBULATED IN THE HALLWAY. PT WORKED WITH OCCUPATIONAL THERAPY WELL-TOLERATED WELL. PT CAREGIVER AT BEDSIDE THROUGHOUT MORNING AND AFTERNOON. CONTINUES TO TRACE SR ON THE GREEN BUILDING DESIGN SPECIALIST. ON RA SAT UPPER 90'S. PT UP WITH 1 ASSIST AND GAIT BELT. MEDICATIONS PER JUN. PT REPOSITIONED EVERY 2 HOURS FOR COMFORT. HOURLY ROUNDING OBSERVED. BED IN LOW POSITION. BED ALARM IN PLACE. FALL PRECAUTIONS IN PLACE. CALL LIGHT WITHIN REACH. WILL CONTINUE PLAN OF CARE.
[2018-07-07 02:07] LABS: GLYCOHEMOGLOBIN (HGB A1C) 5.8 % (4.8-5.6)
--- NOTE | 2018-07-07 03:45 | NUR ---
RECEIVED REPORT AND ASSUMED CARE AT 1900. VSS. CARDIAC MONITORING IN PLACE. PT DENIES COMPLAINTS OF PAIN. ASSESSMENT COMPLETED CHARTED. PT UP WITH ASSIST, ON RA. BED LOCKED IN LOWEST POSITION, CALL LIGHT WITHIN REACH, BED ALARM ON. MEDICATION ADMIN PER EMAR
[2018-07-07 04:00] VITALS: BP 118/52
[2018-07-07 08:06] VITALS: BP 115/51
--- NOTE | 2018-07-07 10:00 | NUR ---
ASSUMED CARE OF PT AT 0730. PT RESTING IN CHAIR WAITING FOR BREAKFAST. PT A&0X1. DOWN SYNDROME NOTED. PT TRACING SR ON THE HARVESTING CONTRACTOR. ON RA SAT UPPER 90'S. DENIES ANY SHORTNESS OF BREATH OR PAIN AT THIS TIME. EKG/ECG TECHNICIAN AT BEDSIDE. PT UP WITH 1 ASSIST TO BATHROOM. PT INCONT AT TIMES. NIH COMPLETED. REFER TO CHARTING. PT GOAL FOR TODAY IS TO MONITOR NIH, PT AND OT AND UP TO CHAIR FOR MEALS. AM ASSESSMENT CHARTED. MEDICATIONS PER JUN. PT REPOSITIONED EVERY 2 HOURS FOR COMFORT. HOURLY ROUNDING OBSERVED. BED IN LOW POSITION. BED/CHAIR ALARM IN PLACE. FAL PRECAUTIONS IN PLACE. CALL LIGHT WITHIN REACH. WILL CONTINUE PLAN OF CARE.
[2018-07-07 12:18] VITALS: BP 84/63
[2018-07-07 16:23] VITALS: BP 113/60
--- NOTE | 2018-07-07 16:24 | NUR ---
NO ACUTE CHANGES THROUGHOUT SHIFT. REFER TO CHARTING. PT PRESERVATIVE FILLER MACHINE OPERATOR AT BEDSIDE THROUGHOUT SHIFT. PT SAT UP IN THE CHAIR FOR MEALS AND AMBULATED IN ROOM. TOLERATED WELL. PT DENIES ANY PAIN OR SHORTNESS OF BREATH. UP WITH 1 ASSIST. CONTINUES TO TRACE SR ON THE MANAGER FLIGHT OPERATIONS. ON RA SAT UPPER 90'S. PT PROGRESSING TOWARDS GOALS. NO CHANGES TO NIH. MEDICATIONS PER JUN. PT REPOSITIONED EVERY 2 HOURS FOR COMFORT. HOURLY ROUNDING OBSERVED. BED IN LOW POSITION. BED ALARM IN PLACE. FALL PRECAUTIONS IN PLACE. CALL LIGHT WITHIN REACH. WILL CONTINUE PLAN OF CARE.
[2018-07-07 19:10] VITALS: BP 109/58
--- NOTE | 2018-07-07 23:10 | NUR ---
ASSESSMENT COMPLETED CHARTED. VSS. TRACING SR ON MONITOR. MEDICATIONS GIVEN PER EMAR. FALL PRECAUTIONS AND HOURLY ROUNDING IN PLACE PER EMAR. Q2 TURNS TO MAINTAIN SKIN INTEGRITY. CLWR.
[2018-07-08] VITALS (7 sets, daily range): BP systolic 105–127; BP diastolic 52–65
[2018-07-08] MEDS ORDERED: PRENATAL PLUS1 EAC5 PO (11:13)
--- NOTE | 2018-07-08 11:15 | NUR ---
INITIAL ASSESSMENT: Pt evaluated for d/c planning needs. Reviewed chart and spoke with Garrison Vital with Public Senior Maintenance Technician's office. Pt had been living with his mother and has since become [place]. Pt lives in a house with a roommate at [address] [place] [address]. Awaiting results of MRI prior to d/c. Pt is not being admitted to inpatient rehab at this time. If pt is d/c home, Public Senior Maintenance Technician wants pt to have home health with [facility]. Contacted [facility] and faxed referral. Will fax orders when available.
[2018-07-08] MEDS ORDERED: LEVAQUIN 500 M500 M2 PO (11:22)
[2018-07-08] MEDS ORDERED: MIRALAX17 GM PO (11:24)
[2018-07-08] MEDS ORDERED: LIPITOR 20 MG T20 M1 PO (11:31)
--- NOTE | 2018-07-08 12:33 | NUR ---
Nutrition: Consult received for "BMI." Pt's BMI is WNL, wt is 122#. Alb 2.5, prealb 14.3 - moderately depleted protein stores. Regular diet ordered. Down syndrome. Labs, RX noted. No nutrition concerns at [facility]. Low risk.
--- NOTE | 2018-07-08 14:01 | NUR ---
PT ALERT, ORIENTED TO SELF ONLY, HX CVA AND DOWN SYNDROME. TELE TRACKING NSR WITH FIRST DEGREE, WHILE PT ALLOWS HEART MONITOR. ALL VSS ON ROOM AIR. CAREGIVER AT BEDSIDE MOST OF SHIFT- CONFIRMS THAT PT IS AT BASELINE LEVEL OF FUNCTIONING/ACTIVITY. NIH 3. EDUCATED ON SAFETY AND PLAN OF CARE. PLEASE SEE ASSESSMENT FOR ADDITIONAL INFORMATION. WILL CONTINUE TO MONITOR
--- NOTE | 2018-07-08 16:58 | NUR ---
PT INITIALLY EVALUATED ON 07/06/18. PT DISCHARGED FROM PT SERVICES AT THAT TIME DUE TO CAREGIVER PRESENT INDICATING PT AT BASELINE. NEW PT ORDERS RECEIVED 07/08/18. NSG INDICATES CAN CANCEL THESE ORDERS PT IS DISCHARGING TO HOME.
--- NOTE | 2018-07-10 18:03 | CON ---
[facility] [address] [place] [address] CONSULTATION Name: LIDADICK Funmilayo Room: [address] IN M.R.#: [id number] Admission: 07/05/18 Attend Phys: Cara Ledesma Discharge: 07/08/18 Date of : 64 Report #: [id number] THIS REPORT FOR: //name// CC: Justin Lee DATE OF SERVICE: 07/05/2018 HISTORY OF PRESENT ILLNESS: This is a 58-year-old male patient who is not able to provide any reliable history. Subsequently, the patient's caregiver came and she provided some history. The patient apparently has a long-standing history of problems. He has Down syndrome. He is a total care. He apparently has been weak for some time. That weakness deteriorated, but he was also having some pain in the abdomen. They are not sure whether the weakness actually deteriorated or not. He had some sore throat along with it. He had a CT scan of the head done, which demonstrates the possibility of stroke. REVIEW OF SYSTEMS: Indicates that his biggest problem has been abdominal pain and constipation. He has a question of weakness in the lower extremities. I carried out 14-point review of system and this is the best I can carry out. PAST MEDICAL HISTORY: Positive for Down syndrome. FAMILY HISTORY: Negative for early age stroke. SOCIAL HISTORY: He does not smoke. He requires total care in daily activities. PHYSICAL EXAMINATION: NEUROLOGIC: The patient's examination indicates the patient is alert. He does not follow commands on a persistent basis, but sometime he does. I attempted cranial nerve examination on him. I was not able to carry out a good cranial nerve examination. He moves all four extremities. His reflexes appear to be somewhat diminished. Rest of the exam was attempted, but it was not possible. He is moderately built individual. VITAL SIGNS: Blood pressure is 125/68, respirations 17 and pulse is 82. LUNGS: He has no respiratory difficulty or rhonchi. CARDIAC EXAMINATION: Appear noncontributory. LABORATORY DATA: His white count is normal at 8.2. His GFR is 100. He did have a CT scan, which showed a question of stroke. IMPRESSION: We need to do further workup to see if this stroke is recent or happened since last time. If he had a stroke that can contribute to his ambulation difficulty. If it is not a stroke, then other etiologies need to be excluded, especially he had Down syndrome and predisposed to tumors [place] [address] CONSULTATION Name: DICK HILTON Room: [address]#: [id number] Admission: 07/05/18 Attend Phys: Cara Ledesma Discharge: 07/08/18 Date of : 64 Report #: [id number] RECOMMENDATIONS: 1. We will get a carotid Doppler. 2. When he stabilizes, we would like to do an MRI of the brain with and without contrast. 3. We will ask PT, OT to work with him and see how he does. 4. I will go ahead and start him on an aspirin. Thank you very much for this referral and if you have any questions, please feel free to contact me. <ELECTRONICALLY SIGNED> By: Gee Hogan MD 07/10/18 [id number] Hogan MD /nt
== END 2018-07-08 17:45 | disposition home or self-care (01) | DRG 64 ==
LOC: M.ERS 09:21 → M.2W 12:32 → M.TBA-ER 12:32 → M.2W 13:52
PROVIDERS: Emergency Medicine; ADMIT Internal Medicine
PROC: 05HY33Z Insertion of Infusion Device into Upper Vein, Percutaneous Approach (ICD-10-PCS; principal; 2018-07-05)
DX: I63.9 Cerebral infarction, unspecified (principal); E43 Unspecified severe protein-calorie malnutrition; Z68.1 Body mass index [BMI] 19.9 or less, adult; K59.00 Constipation, unspecified; E11.9 Type 2 diabetes mellitus without complications; M47.816 Spondylosis without myelopathy or radiculopathy, lumbar region; E86.0 Dehydration; I50.9 Heart failure, unspecified; Z88.0 Allergy status to penicillin; Z88.8 Allergy status to other drugs, medicaments and biological substances; Z88.1 Allergy status to other antibiotic agents; Z91.040 Latex allergy status; Z79.899 Other long term (current) drug therapy; Q90.9 Down syndrome, unspecified; Z79.4 Long term (current) use of insulin; Z89.021 Acquired absence of right finger(s)